=== PATIENT | male | born 1955 | race Caucasian/White ===

== ENCOUNTER 2017-06-13 08:40 | Inpatient (IN) | payer BC ==
[~2017-06-13 08:40] MED LIST: Acetaminophen 325 MG Tab PO SCH; Lidocaine 1%/Sod Bicarbonate in NS 8.4% 1 ML Syringe IDERM PRN; Pregabalin 25 MG Cap PO SCH; Sodium Chloride 0.9% 10 ML Syringe FLUSH PRN; oxyCODONE ER 10 MG TAB.ER PO SCH
[2017-06-13] MEDS: Lactated Ringers 1,000 ML IV SCH ×3 (09:35→18:13)
[2017-06-13] MEDS ORDERED: ceFAZolin 1 GM Vial ONE ×3 (09:37→15:15)
[2017-06-13] MEDS ORDERED: Vancomycin 1 GM SDV ONE (09:37)
[2017-06-13] MEDS ORDERED: Bupivacaine 0.25% 30 ML SDV ONE (09:37)
[2017-06-13] MEDS ORDERED: Triamcinolone Acetonide 40 MG/ML 1 ML MDV ONE ×2 (09:37→11:06)
--- NOTE | 2017-06-13 09:58 | PCM.PREANE ---
Preanesthetic Assessment - Anesthesia/Transfusion/Family Hx Anesthesia History: Prior Anesthesia Without Reaction Type of Anesthesia Reaction: Excessive Nausea/Vomiting Family History of Anesthesia Reaction: No Transfusion History: No Prior Transfusion(s) - Review of Systems General: No Symptoms Pulmonary: No Symptoms Cardiovascular: No Symptoms Gastrointestinal: No Symptoms Neurological: No Symptoms Other: Reports: Liver Problems (large mass removed 2015), Thyroid Problems, Depression, Anxiety - Physical Assessment NPO Status Date: 06/12/17 NPO Status Time: 22:00 (sip with pill) Pulse: 80 O2 Sat by Pulse Oximetry: 98 Respiratory Rate: 16 Blood Pressure: 159/95 Temperature: 100.4 F Height: 6 ft Weight: 108 kg ASA Class: 3 Mental Status: Alert & Oriented x3 Airway Class: Mallampati = 1 Dentition: Reports: Normal Dentition Thyro-Mental Finger Breadths: 3 Mouth Opening Finger Breadths: 3 ROM/Head Extension: Full Lungs: Clear to Auscultation, Normal Respiratory Effort Cardiovascular: Regular Rate, Regular Rhythm - Lab Values: Laboratory Last Values MRSA (PCR) Negative 05/31/17 09:38 - Allergies Allergies/Adverse Reactions: Allergies Allergy/AdvReac Type Severity Reaction Status Date / Time iodine Allergy Rash Verified 06/12/17 15:18 - Blood Blood Available: No - Acknowledgements Anesthesia Type Planned: General Anesthesia (per [place]) Pt an Appropriate Candidate for the Planned Anesthesia: Yes Alternatives and Risks of Anesthesia Discussed w Pt/Guardian: Yes Pt/Guardian Understands and Agrees with Anesthesia Plan: Yes PreAnesthesia Questionnaire HEENT History: Reports: None Cardiovascular History: Reports: High Cholesterol, Hypertension Other Cardiovascular History: 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 Respiratory History: Reports: Other (See Below) Other Respiratory History: undiagnosed sleep apnea Gastrointestinal History: Reports: GERD, Irritable Bowel Syndrome, Other (See Below) Other Gastrointestinal History: right inguinal hernia, hepatic hemangioma Genitourinary History: Reports: Other (See Below) Other Genitourinary History: renal calculus, hypogonadism, erectile dysfunction , elevated PSA 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 Musculoskeletal History: Reports: Other (See Below) Other Musculoskeletal History: carpal tunnel syndrome, wrist pain, low back pain , left shoulder impingement, left knee injury, poylmyaglia, rheumatica, arthralgia, arm weakness Psychiatric History: Reports: Depression, Other (See Below) Other Psychiatric History: chronic insomnia, fatigue Endocrine/Metabolic History: Reports: Hypothyroidism Hematologic History: Reports: None Oncologic (Cancer) History: Reports: None Dermatologic History: Reports: None - Past Surgical History HEENT Surgical History: Reports: None Respiratory Surgical History: Reports: None GI Surgical History: Reports: Cholecystectomy, Colonoscopy, EGD, Hernia, Inguinal, Other (See Below) Other GI Surgeries/Procedures: partial liver lobectomy Female Surgical History: Reports: None Male Surgical History: Reports: None Endocrine Surgical History: Reports: None Neurological Surgical History: Reports: Discectomy, Other (See Below) Other Neurological Surgeries/Procedures: back discectomy x6 Musculoskeletal Surgical History: Reports: Carpal Tunnel, Knee Replacement, Shoulder Surgery Other Musculoskeletal Surgeries/Procedures:: back surgery Oncologic Surgical History: Reports: None Dermatological Surgical History: Reports: None - SUBSTANCE USE Smoking Status *Q: Never Smoker Tobacco Use Within Last Twelve Months: No Second Hand Smoke Exposure: No Days Per Week of Alcohol Use: 1 (occasionally) Number of Drinks Per Day: 3 Total Drinks Per Week: 3 Recreational Drug Use History: No - HOME MEDS Home Medications: Home Meds Levothyroxine Sodium [Synthroid] 200 mcg PO DAILY 07/29/14 [History] Lisinopril 20 mg PO DAILY 07/29/14 [History] Temazepam 30 mg PO BEDTIME 07/29/14 [History] DULoxetine [Cymbalta] 60 mg PO DAILY 06/12/17 [History] Hydroxychloroquine Sulfate [Plaquenil] 200 mg PO BID 06/12/17 [History] Lactobacillus Acidophilus [Probiotic] 1 cap PO DAILY 06/12/17 [History] Naproxen Sodium [Aleve] 220 mg PO BID 06/12/17 [History] Sildenafil Citrate [Sildenafil] 20 mg PO ASDIRECTED PRN 06/12/17 [History] amLODIPine [Norvasc] 2.5 mg PO DAILY 06/12/17 [History] hydrOXYzine HCl [hydrOXYzine] 25 - 50 mg PO BEDTIME PRN 06/12/17 [History] traMADol [Ultram] 50 mg PO Q4H PRN 06/13/17 [History] - CURRENT (IN HOUSE) MEDS Current Meds: Current Medications Acetaminophen (Tylenol) 975 mg PO ASDIRECTED BRAD Stop: 06/13/17 12:00 Aspirin (Ecotrin) 325 mg PO BID BRAD Bisacodyl (Dulcolax) 5 mg PO DAILY PRN PRN Reason: Constipation Morphine Sulfate 8 mg/Epinephrine HCl 0.3 mg/Cefuroxime Sodium 750 mg/Ketorolac Tromethamine 30 mg/Sodium Chloride 27.9 ml 0 mg .XX ONETIME ONE Stop: 06/13/17 11:21 Cyclobenzaprine HCl (Flexeril) 10 mg PO TID PRN PRN Reason: Spasms Docusate Sodium (Colace) 100 mg PO BID [facility] Famotidine (Pepcid) 20 mg PO Q12H [facility] Lactated Ringer's (Ringers, Lactated) 1,000 mls @ 125 mls/hr IV ASDIRECTED [facility] Stop: 06/13/17 23:00 Cefazolin Sodium/Dextrose 2 gm (/ Premix) 50 mls @ 100 mls/hr IV Q8H [facility] Stop: 06/13/17 23:29 Ketorolac Tromethamine (Toradol) 15 mg IVPUSH Q6H PRN PRN Reason: Pain Lidocaine/Sodium Bicarbonate (Buffered Lidocaine 1% In Ns 8.4%) 0.25 ml IDERM ONETIME PRN PRN Reason: Prior to IV Start Stop: 06/13/17 18:00 Magnesium Hydroxide (Milk Of Magnesia) 30 ml PO BID PRN PRN Reason: Constipation Morphine Sulfate (Morphine) 2 mg IVPUSH Q2H PRN PRN Reason: Breakthrough Pain Naloxone HCl (Narcan) 0.1 mg IVPUSH Q5M PRN PRN Reason: Oversedation Ondansetron HCl (Zofran) 4 mg IVPUSH Q6H PRN PRN Reason: Nausea/Vomiting Oxycodone HCl (Oxycontin) 10 mg PO ASDIRECTED [facility] Stop: 06/13/17 12:00 Oxycodone/Acetaminophen (Percocet 325-5 Mg) 1 - 2 tab PO Q4H PRN PRN Reason: Pain Pregabalin (Lyrica) 50 mg PO ASDIRECTED [facility] Stop: 06/13/17 12:00 Senna (Senna) 8.6 mg PO BID PRN PRN Reason: Constipation Sodium Chloride (Saline Flush) 10 ml FLUSH ASDIRECTED PRN PRN Reason: Keep Vein Open Stop: 06/13/17 18:00 Discontinued Medications Bupivacaine HCl (Marcaine 0.25%) Confirm Administered Dose 30 ml .ROUTE .STK- MED ONE Stop: 06/13/17 09:38 Cefazolin Sodium (Ancef) Confirm Administered Dose 2 gm .ROUTE .STK-MED ONE Stop: 06/13/17 09:38 Tranexamic Acid (Cyklokapron) Confirm Administered Dose 1,000 mg .ROUTE .STK- MED ONE Stop: 06/13/17 09:38 Triamcinolone Acetonide (Kenalog-40) Confirm Administered Dose 40 mg .ROUTE .STK -MED ONE Stop: 06/13/17 09:38 Vancomycin HCl (Vancomycin) Confirm Administered Dose 1 gm .ROUTE .STK-MED ONE Stop: 06/13/17 09:38
[2017-06-13] MEDS ORDERED: Midazolam 1 MG/ML 2 ML SDV ONE (10:21)
[2017-06-13] MEDS ORDERED: Propofol 200 MG/20 ML SDV ONE ×3 (10:21→13:44)
[2017-06-13] MEDS ORDERED: fentaNYL 100 MCG/2 ML SDV ONE ×2 (10:21→15:19)
[2017-06-13] MEDS ORDERED: Lactated Ringers 1,000 ML ONE ×2 (10:27)
[2017-06-13] MEDS ORDERED: fentaNYL 250 MCG/5 ML SDV ONE (10:40)
[2017-06-13] MEDS ORDERED: Lidocaine 1% 4 ML ONE (10:40)
[2017-06-13] MEDS ORDERED: Scopolamine 1.5 MG Transdermal Patch TOP ONE (10:42)
[2017-06-13] MEDS ORDERED: Rocuronium 50 MG/5 ML Vial ONE (10:44)
[2017-06-13] MEDS ORDERED: HYDROmorphone 0.5 MG/0.5 ML Syringe IVPUSH PRN ×2 (11:32→14:53)
[2017-06-13] MEDS ORDERED: fentaNYL 100 MCG/2 ML SDV IVPUSH PRN ×2 (11:32→14:53)
[2017-06-13] MEDS ORDERED: Meperidine PF 50 MG/ML Syringe IVPUSH PRN ×2 (11:32→14:53)
[2017-06-13] MEDS ORDERED: Ondansetron 4 MG/2 ML SDV IVPUSH PRN ×2 (11:32→13:00)
[2017-06-13] MEDS ORDERED: methylPREDNISolone Sodium Succinate 125 MG/2 ML SDV ONE (11:38)
[2017-06-13] MEDS ORDERED: ePHEDrine/Normal Saline 25 MG/5 ML Syringe ONE (11:40)
[2017-06-13] MEDS ORDERED: Ondansetron 4 MG/2 ML SDV ONE (11:46)
[2017-06-13] MEDS ORDERED: Bupivacaine 0.25% 10 ML SDV ONE (11:48)
[2017-06-13] MEDS ORDERED: HYDROmorphone 0.5 MG/0.5 ML Syringe ONE ×5 (12:04→15:28)
[2017-06-13] MEDS ORDERED: Ketamine 500 mg/10 ML MDV ONE (12:05)
[2017-06-13] MEDS ORDERED: Glycopyrrolate 0.2 MG/ML SDV ONE (12:22)
[2017-06-13] MEDS ORDERED: Phenylephrine 1% 10 MG/ML SDV ONE (12:29)
[2017-06-13] MEDS ORDERED: Naloxone 0.4 MG/ML SDV IVPUSH PRN (13:00)
[2017-06-13] MEDS ORDERED: Sennosides 8.6 MG Tab PO PRN (13:00)
[2017-06-13] MEDS ORDERED: Magnesium Hydroxide 400 MG/5 ML Susp 30 ML Cup PO PRN (13:00)
[2017-06-13] MEDS ORDERED: Bisacodyl 5 MG Tab PO PRN (13:00)
[2017-06-13] MEDS ORDERED: Cyclobenzaprine 10 MG Tab PO PRN (13:00)
[2017-06-13] MEDS ORDERED: EPINEPHrine 1 MG/ML SDV ONE (13:03)
[2017-06-13] MEDS ORDERED: Ropivacaine 0.5% 5 MG/ML 30 ML SDV ONE (13:03)
[2017-06-13] MEDS ORDERED: Ketorolac 30 MG/ML SDV ONE (13:07)
[2017-06-13] MEDS: Morphine 8 MG, EPINEPHrine 0.3 MG, Cefuroxime 750 MG, Ketorolac 30 MG, Sodium Chloride ... ONE ×5 (14:38)
[2017-06-13] MEDS ORDERED: diphenhydrAMINE 50 MG/ML SDV IVPUSH PRN (14:53)
[2017-06-13] MEDS ORDERED: Haloperidol Lactate 5 MG/ML SDV IVPUSH ONE (14:53)
[2017-06-13] MEDS ORDERED: Lidocaine 1% 2 ML ONE (15:09)
--- NOTE | 2017-06-13 15:17 | PCM.PN ---
- General Info Date of Service: 06/13/17 Subjective Update: Deshawn is a 62 [address] of Dr[address] 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 Hospital medicine was consulted for post -operative medical care. At this time he is stable. Pain is controlled. He denies any chest pain, shortness of breath, palpitations, nausea, or vomiting. He carries a history of: HTN, HLD, GERD, IBS, Depression, Anxiety, Hypogonadism , Insomnia, Hypothyroid, Elevated PSA. He has never smoked. He is a full code. His primary care provider is Willy Thacker. Functional Status: Reports: Pain Controlled, Urinating, Incentive Spirometry - Review of Systems General: Reports: No Symptoms HEENT: Reports: No Symptoms Pulmonary: Reports: No Symptoms Cardiovascular: Reports: No Symptoms Gastrointestinal: Reports: No Symptoms Genitourinary: Reports: No Symptoms Musculoskeletal: Reports: Leg Pain, Joint Pain (bilateral, s/p L TKA and R cortisone injection) Skin: Reports: No Symptoms Neurological: Reports: No Symptoms Psychiatric: Reports: No Symptoms - Patient Data Vitals - Most Recent: Last Vital Signs Temp 100.4 F 06/13/17 10:43 Pulse 80 06/13/17 10:43 Resp 16 06/13/17 10:43 BP 159/95 H 06/13/17 10:43 Pulse Ox 98 06/13/17 10:43 Weight - Most Recent: 238 lb 1.588 oz Johan Results Last 24 Hours: Microbiology 06/13/17 12:46 Gram Stain - Final Other 06/13/17 12:44 Gram Stain - Final Other 06/13/17 12:02 Gram Stain - Final Knee, Left 06/13/17 12:03 Gram Stain - Final Knee, Left 06/13/17 12:02 Gram Stain - Final Knee, Left Med Orders - Current: Current Medications Aspirin (Ecotrin) 325 mg PO BID BRAD Bisacodyl (Dulcolax) 5 mg PO DAILY PRN PRN Reason: Constipation Cyclobenzaprine HCl (Flexeril) 10 mg PO TID PRN PRN Reason: Spasms Diphenhydramine HCl (Benadryl) 25 mg IVPUSH Q6H PRN PRN Reason: Pruritis Stop: 06/13/17 18:00 Docusate Sodium (Colace) 100 mg PO BID BRAD Famotidine (Pepcid) 20 mg PO Q12H [facility] Fentanyl (Sublimaze) 50 mcg IVPUSH Q5M PRN PRN Reason: Pain Stop: 06/14/17 18:00 Hydromorphone HCl (Dilaudid) 0.5 mg IVPUSH ASDIRECTED PRN PRN Reason: Severe Pain Stop: 06/13/17 16:00 Lactated Ringer's (Ringers, Lactated) 1,000 mls @ 125 mls/hr IV ASDIRECTED [facility] Stop: 06/13/17 23:00 Last Admin: 06/13/17 09:35 Dose: 125 mls/hr Cefazolin Sodium/Dextrose 2 gm (/ Premix) 50 mls @ 100 mls/hr IV Q8H [facility] Stop: 06/14/17 10:59 Ketorolac Tromethamine (Toradol) 15 mg IVPUSH Q6H PRN PRN Reason: Pain Lidocaine/Sodium Bicarbonate (Buffered Lidocaine 1% In Ns 8.4%) 0.25 ml IDERM ONETIME PRN PRN Reason: Prior to IV Start Stop: 06/13/17 18:00 Magnesium Hydroxide (Milk Of Magnesia) 30 ml PO BID PRN PRN Reason: Constipation Morphine Sulfate (Morphine) 2 mg IVPUSH Q2H PRN PRN Reason: Breakthrough Pain Naloxone HCl (Narcan) 0.1 mg IVPUSH Q5M PRN PRN Reason: Oversedation Ondansetron HCl (Zofran) 4 mg IVPUSH Q6H PRN PRN Reason: Nausea/Vomiting Ondansetron HCl (Zofran) 4 mg IVPUSH ONETIME PRN PRN Reason: Nausea/Vomiting Stop: 06/13/17 18:00 Oxycodone/Acetaminophen (Percocet 325-5 Mg) 1 - 2 tab PO Q4H PRN PRN Reason: Pain Senna (Senna) 8.6 mg PO BID PRN PRN Reason: Constipation Sodium Chloride (Saline Flush) 10 ml FLUSH ASDIRECTED PRN PRN Reason: Keep Vein Open Stop: 06/13/17 18:00 Discontinued Medications Acetaminophen (Tylenol) 975 mg PO ASDIRECTED [facility] Stop: 06/13/17 12:00 Last Admin: 06/13/17 10:14 Dose: 975 mg Bupivacaine HCl (Marcaine 0.25%) Confirm Administered Dose 30 ml .ROUTE .STK- MED ONE Stop: 06/13/17 09:38 Last Admin: 06/13/17 14:39 Dose: 30 ml Bupivacaine HCl (Sensorcaine-Mpf 0.25%) Confirm Administered Dose 10 ml .ROUTE .STK-MED ONE Stop: 06/13/17 11:49 Cefazolin Sodium (Ancef) Confirm Administered Dose 2 gm .ROUTE .STK-MED ONE Stop: 06/13/17 09:38 Last Admin: 06/13/17 14:35 Dose: 2 gm Cefazolin Sodium (Ancef) Confirm Administered Dose 2 gm .ROUTE .STK-MED ONE Stop: 06/13/17 10:27 Morphine Sulfate 8 mg/Epinephrine HCl 0.3 mg/Cefuroxime Sodium 750 mg/Ketorolac Tromethamine 30 mg/Sodium Chloride 27.9 ml 0 mg .XX ONETIME ONE Stop: 06/13/17 11:21 Last Admin: 06/13/17 14:38 Dose: 788.3 mg Ephedrine Sulfate (Ephedrine In Ns) Confirm Administered Dose 25 mg .ROUTE .STK- MED ONE Stop: 06/13/17 11:41 Epinephrine HCl (Adrenalin) Confirm Administered Dose 1 mg .ROUTE .STK-MED ONE Stop: 06/13/17 13:04 Fentanyl (Sublimaze) Confirm Administered Dose 100 mcg .ROUTE .STK-MED ONE Stop: 06/13/17 10:22 Fentanyl (Sublimaze) Confirm Administered Dose 250 mcg .ROUTE .STK-MED ONE Stop: 06/13/17 10:41 Fentanyl (Sublimaze) 50 mcg IVPUSH Q5M PRN PRN Reason: Pain Stop: 06/13/17 14:00 Glycopyrrolate (Robinul) Confirm Administered Dose 0.2 mg .ROUTE .STK-MED ONE Stop: 06/13/17 12:23 Haloperidol Lactate (Haldol) 1 mg IVPUSH ONETIME ONE Stop: 06/13/17 14:54 Hydromorphone HCl (Dilaudid) 0.5 mg IVPUSH ONETIME PRN PRN Reason: Pain (severe 7-10) Stop: 06/13/17 13:00 Hydromorphone HCl (Dilaudid) Confirm Administered Dose 0.5 mg .ROUTE .ST-MED ONE Stop: 06/13/17 12:05 Hydromorphone HCl (Dilaudid) Confirm Administered Dose 0.5 mg .ROUTE .ST-MED ONE Stop: 06/13/17 12:53 Hydromorphone HCl (Dilaudid) Confirm Administered Dose 0.5 mg .ROUTE .ST-MED ONE Stop: 06/13/17 14:50 Hydromorphone HCl (Dilaudid) Confirm Administered Dose 0.[address] ONE Stop: 06/13/17 14:57 Lactated Ringer's (Ringers, Lactated) Confirm Administered Dose 1,000 mls @ [facility] Stop: 06/13/17 10:28 Lactated Ringer's (Ringers, Lactated) Confirm Administered Dose 1,000 mls @ as directed .ROUTE .[facility] ONE Stop: 06/13/17 10:28 Lidocaine HCl (Xylocaine-Mpf 1%) Confirm Administered Dose 4 mls @ as directed .ROUTE .[facility]-MED ONE Stop: 06/13/17 10:41 Ketamine HCl (Ketalar) Confirm Administered Dose 500 mg .ROUTE .ST-MED ONE Stop: 06/13/17 12:06 Ketorolac Tromethamine (Toradol) Confirm Administered Dose [address] ONE Stop: 06/13/17 13:08 Meperidine HCl (Demerol) 12.5 mg IVPUSH ONETIME PRN PRN Reason: shivering Stop: 06/13/17 14:00 Meperidine HCl (Demerol) 12.5 mg IVPUSH ONETIME PRN PRN Reason: Shivering Stop: 06/13/17 14:54 Methylprednisolone Sodium Succinate (Solu-Medrol) Confirm Administered Dose [address]-MED ONE Stop: 06/13/17 11:39 Midazolam HCl (Versed 1 Mg/Ml) Confirm Administered Dose 2 mg .ROUTE .ST-MED ONE Stop: 06/13/17 10:22 Ondansetron HCl (Zofran) Confirm Administered Dose 4 mg .ROUTE .ST-MED ONE Stop: 06/13/17 11:47 Oxycodone HCl (Oxycontin) 10 mg PO ASDIRECTED [facility] Stop: 06/13/17 12:00 Last Admin: 06/13/17 10:15 Dose: 10 mg Phenylephrine HCl ([place]-Synephrine) Confirm Administered Dose 10 mg .ROUTE .STK- MED ONE Stop: 06/13/17 12:30 Pregabalin (Lyrica) 50 mg PO ASDIRECTED [facility] Stop: 06/13/17 12:00 Last Admin: 06/13/17 10:14 Dose: 50 mg Propofol (Diprivan 20 Ml) Confirm Administered Dose 200 mg .ROUTE .STK-MED ONE Stop: 06/13/17 10:22 Propofol (Diprivan 20 Ml) Confirm Administered Dose 200 mg .ROUTE .STK-MED ONE Stop: 06/13/17 13:45 Propofol (Diprivan 20 Ml) Confirm Administered Dose 200 mg .ROUTE .STK-MED ONE Stop: 06/13/17 13:45 Rocuronium [place] (Zemuron) Confirm Administered Dose 50 mg .ROUTE .STK-MED ONE Stop: 06/13/17 10:45 Ropivacaine (Naropin 0.5%) Confirm Administered Dose 30 ml .ROUTE .STK-MED ONE Stop: 06/13/17 13:04 Scopolamine (Transderm-Scop) 1.5 mg TOP ONETIME ONE Stop: 06/13/17 10:43 Last Admin: 06/13/17 11:11 Dose: 1.5 mg Tranexamic Acid (Cyklokapron) Confirm Administered Dose 1,000 mg .ROUTE .STK- MED ONE Stop: 06/13/17 09:38 Triamcinolone Acetonide (Kenalog-40) Confirm Administered Dose 40 mg .ROUTE .STK -MED ONE Stop: 06/13/17 09:38 Triamcinolone Acetonide (Kenalog-40) Confirm Administered Dose 40 mg .ROUTE .STK -MED ONE Stop: 06/13/17 11:07 Vancomycin HCl (Vancomycin) Confirm Administered Dose 1 gm .ROUTE .STK-MED ONE Stop: 06/13/17 09:38 - Exam Quality Assessment: Supplemental Oxygen, Urine Catheter, DVT Prophylaxis General: Alert, Oriented HEENT: Pupils Equal, Pupils Reactive, EOMI, Mucous Membr. Moist/[place] Neck: Supple Lungs: Clear to Auscultation, Normal Respiratory Effort Cardiovascular: Regular Rate, Regular Rhythm GI/Abdominal Exam: Normal Bowel Sounds, Soft, Non-Tender, No Organomegaly, No Distention, No Abnormal Bruit, No Mass, Pelvis Stable (Male) Exam: Deferred Back Exam: Normal Inspection, Full Range of Motion Extremities: Normal Capillary Refill, Pedal Edema, Leg Pain, Limited Range of Motion (bilateral, s/p L TKA and R cortisone injection) Peripheral Pulses: 1+: Posterior Tibial (L), Posterior Tibial (R), Dorsalis Pedis (L), Dorsalis Pedis (R) Skin: Warm, Dry, Intact Wound/Incisions: Healing Well, Dressing Dry and Intact Neurological: No New Focal Deficit Psy/Mental Status: Alert, Normal Affect, Normal Mood - Problem List & Annotations (1) Status post revision of total replacement of left knee SNOMED Code(s): 590773859, 3816696164384 Code(s): Z96.652 - PRESENCE OF LEFT ARTIFICIAL KNEE JOINT Status: Acute Current Visit: Yes (2) Right knee pain SNOMED Code(s): 94290006 Code(s): M25.561 - PAIN IN RIGHT KNEE Status: Acute Current Visit: Yes (3) Left leg pain SNOMED Code(s): 150340866 Code(s): M79.605 - PAIN IN LEFT LEG Status: Acute Current Visit: No (4) HTN (hypertension) SNOMED Code(s): 60847089 Code(s): I10 - ESSENTIAL (PRIMARY) HYPERTENSION Status: Chronic Priority : Medium Current Visit: Yes Qualifiers: Hypertension type: unspecified Qualified Code(s): I10 - Essential (primary ) hypertension (5) HLD (hyperlipidemia) SNOMED Code(s): 30233307 Code(s): E78.5 - HYPERLIPIDEMIA, UNSPECIFIED Status: Chronic Priority: Low Current Visit: No Qualifiers: Hyperlipidemia type: unspecified Qualified Code(s): E78.5 - Hyperlipidemia , unspecified (6) Hypogonadism SNOMED Code(s): 17268130 Code(s): FLR1495 - Status: Chronic Priority: Low Current Visit: No (7) GERD (gastroesophageal reflux disease) SNOMED Code(s): 240501398 Code(s): K21.9 - GASTRO-ESOPHAGEAL REFLUX DISEASE WITHOUT ESOPHAGITIS Status: Chronic Priority: Medium Current Visit: No Qualifiers: Esophagitis presence: esophagitis presence not specified Qualified Code(s) : K21.9 - Gastro-esophageal reflux disease without esophagitis (8) Irritable bowel syndrome SNOMED Code(s): 95919153 Code(s): K58.9 - IRRITABLE BOWEL SYNDROME WITHOUT DIARRHEA Status: Chronic Priority: Low Current Visit: No Qualifiers: Irritable bowel syndrome type: unspecified Qualified Code(s): K58.9 - Irritable bowel syndrome without diarrhea (9) Anxiety SNOMED Code(s): 06266113 Code(s): F41.9 - ANXIETY DISORDER, UNSPECIFIED Status: Chronic Priority: Low Current Visit: No (10) Insomnia SNOMED Code(s): 080455268 Code(s): G47.00 - INSOMNIA, UNSPECIFIED Status: Chronic Priority: Low Current Visit: No Qualifiers: Insomnia type: unspecified Qualified Code(s): G47.00 - Insomnia, unspecified (11) Hypothyroid SNOMED Code(s): 27322256 Code(s): E03.9 - HYPOTHYROIDISM, UNSPECIFIED Status: Chronic Priority: Medium Current Visit: No Qualifiers: Hypothyroidism type: unspecified Qualified Code(s): E03.9 - Hypothyroidism , unspecified (12) Elevated PSA SNOMED Code(s): 422006378 Code(s): R97.20 - ELEVATED PROSTATE SPECIFIC ANTIGEN [PSA] Status: Chronic Priority: Low Current Visit: No (13) History of total left knee replacement SNOMED Code(s): 1203424857275, 658671962, 0093219784932 Code(s): Z96.652 - PRESENCE OF LEFT ARTIFICIAL KNEE JOINT Status: Chronic Priority: Medium Current Visit: No (14) Carpal tunnel syndrome SNOMED Code(s): 46679079 Code(s): G56.00 - CARPAL TUNNEL SYNDROME, UNSPECIFIED UPPER LIMB Status: Chronic Priority: Low Current Visit: No Qualifiers: Laterality: unspecified laterality Qualified Code(s): G56.00 - Carpal tunnel syndrome, unspecified upper limb (15) H/O discectomy SNOMED Code(s): 233534225, 951869130 Code(s): Z98.890 - OTHER SPECIFIED POSTPROCEDURAL STATES Status: Chronic Priority: Low Current Visit: No (16) Inguinal hernia, right SNOMED Code(s): 579093041 Code(s): K40.90 - UNIL INGUINAL HERNIA, W/O OBST OR GANGR, NOT SPCF RECUR Status: Resolved Priority: Medium Current Visit: No (17) Other specified depressive episodes SNOMED Code(s): 43885887 Code(s): F32.89 - OTHER SPECIFIED DEPRESSIVE EPISODES Status: Chronic Priority: Low Current Visit: No - Problem List Review Problem List Initiated/Reviewed/Updated: Yes - Plan Plan:: I/P: Acute: S/P left total knee arthroplasty - post-operative day 0 -DVT prophylaxis and pain management per primary care team -PT/OT -IS/RT -Monitor oxygen saturation -Titrate oxygen as needed -Vital signs stable -Monitor labs -Pre-operative Hgb was [number] Right knee pain, s/p cortisone injection -Pain management per primary care team Chronic: HTN HLD GERD IBS Depression Anxiety Hypogonadism Insomnia Hypothyroid Elevated PSA Plan: CM for discharge planning GI prophylaxis: Pepcid DVT/PE prophylaxis: BRIAN miller, SCD, ASA Home medications as indicated Other orders as listed above Routine AM labs He is a full code. His PCP is Willy Thacker. Thank you for allowing us to participate in the care of this patient!!
--- NOTE | 2017-06-13 15:41 | PCM.CONS ---
H&P History of Present Illness - General Date of Service: 06/13/17 Admit Problem/Dx: Admission Diagnosis/Problem Admission Diagnosis/Problem Pain in limb Source of Information: Patient, Old Records, Provider, RN Notes Reviewed History Limitations: Reports: No Limitations - History of Present Illness Initial Comments - Free Text/Narative: Deshawn is a 62 yo male patient of Dr. 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 Hospital medicine was consulted for post -operative medical care. At this time he is stable. Pain is controlled. He denies any chest pain, shortness of breath, palpitations, nausea, or vomiting. He carries a history of: HTN, HLD, GERD, IBS, Depression, Anxiety, Hypogonadism , Insomnia, Hypothyroid, Elevated PSA. He has never smoked. He is a full code. His primary care provider is Willy Thacker. Left Knee Pain Score (Numeric/FACES): 9 - Related Data Allergies/Adverse Reactions: Allergies Allergy/AdvReac Type Severity Reaction Status Date / Time iodine Allergy Rash Verified 06/13/17 21:26 Home Medications: Home Meds Levothyroxine Sodium [Synthroid] 200 mcg PO DAILY 07/29/14 [History] Lisinopril 20 mg PO DAILY 07/29/14 [History] Temazepam 30 mg PO BEDTIME 07/29/14 [History] DULoxetine [Cymbalta] 60 mg PO DAILY 06/12/17 [History] Hydroxychloroquine Sulfate [Plaquenil] 200 mg PO BID 06/12/17 [History] Sildenafil Citrate [Sildenafil] 20 mg PO ASDIRECTED PRN 06/12/17 [History] amLODIPine [Norvasc] 2.5 mg PO BEDTIME 06/12/17 [History] hydrOXYzine HCl [hydrOXYzine] 25 - 50 mg PO BEDTIME PRN 06/12/17 [History] traMADol [Ultram] 50 mg PO Q4H PRN 06/13/17 [History] Acetaminophen/oxyCODONE [Percocet 325-5 MG] 1 - 2 tab PO Q6H PRN #60 tablet [Rx] Aspirin [Ecotrin] 325 mg PO BID #84 tab.ec 06/14/17 [Rx] Bisacodyl [Dulcolax] 5 mg PO DAILY PRN tablet 06/14/17 [Rx] Cyclobenzaprine [Flexeril] 10 mg PO TID PRN #40 tablet 06/14/17 [Rx] Docusate Sodium [Colace] 100 mg PO BID cap 06/14/17 [Rx] Famotidine [Pepcid] 20 mg PO Q12H tablet 06/14/17 [Rx] Lactobacillus Acidophilus [Probiotic] 1 cap PO DAILY 06/14/17 [Rx] Magnesium Hydroxide [Milk of Magnesia] 30 ml PO BID PRN cup 06/14/17 [Rx] Sennosides [Senna] 8.6 mg PO BID PRN tablet 06/14/17 [Rx] Past Medical History HEENT History: Reports: None Cardiovascular History: Reports: High Cholesterol, Hypertension Other Cardiovascular History: 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 Respiratory History: Reports: Other (See Below) Other Respiratory History: undiagnosed sleep apnea Gastrointestinal History: Reports: GERD, Irritable Bowel Syndrome, Other (See Below) Other Gastrointestinal History: right inguinal hernia, hepatic hemangioma Genitourinary History: Reports: Other (See Below) Other Genitourinary History: renal calculus, hypogonadism, erectile dysfunction , elevated PSA [employer]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 Musculoskeletal History: Reports: Other (See Below) Other Musculoskeletal History: carpal tunnel syndrome, wrist pain, low back pain , left shoulder impingement, left knee injury, poylmyaglia, rheumatica, arthralgia, arm weakness Psychiatric History: Reports: Depression, Other (See Below) Other Psychiatric History: chronic insomnia, fatigue Endocrine/Metabolic History: Reports: Hypothyroidism Hematologic History: Reports: None Oncologic (Cancer) History: Reports: None Dermatologic History: Reports: None - Past Surgical History HEENT Surgical History: Reports: None Respiratory Surgical History: Reports: None GI Surgical History: Reports: Cholecystectomy, Colonoscopy, EGD, Hernia, Inguinal, Other (See Below) Other GI Surgeries/Procedures: partial liver lobectomy Female Surgical History: Reports: None Male Surgical History: Reports: None Endocrine Surgical History: Reports: None Neurological Surgical History: Reports: Discectomy, Other (See Below) Other Neurological Surgeries/Procedures: back discectomy x6 Musculoskeletal Surgical History: Reports: Carpal Tunnel, Knee Replacement, Shoulder Surgery Other Musculoskeletal Surgeries/Procedures:: back surgery Oncologic Surgical History: Reports: None Dermatological Surgical History: Reports: None Social & Family History - Tobacco Use Smoking Status *Q: Never Smoker Second Hand Smoke Exposure: No - Caffeine Use Caffeine Use: Reports: Soda - Alcohol Use Days Per Week of Alcohol Use: 1 (occasionally) Number of Drinks Per Day: 3 Total Drinks Per Week: 3 - Recreational Drug Use Recreational Drug Use: No H&P Review of Systems - Review of Systems: Review Of Systems: See Below General: Reports: No Symptoms HEENT: Reports: No Symptoms Pulmonary: Reports: No Symptoms Cardiovascular: Reports: No Symptoms Gastrointestinal: Reports: No Symptoms Genitourinary: Reports: No Symptoms Musculoskeletal: Reports: Joint Pain (bilateral, s/p L TKA and R knee cortisone injection) Skin: Reports: No Symptoms Psychiatric: Reports: No Symptoms Neurological: Reports: No Symptoms Hematologic/Lymphatic: Reports: No Symptoms Immunologic: Reports: No Symptoms Exam - Exam Exam: See Below - Vital Signs Vital Signs: Last Vital Signs Temp 100.4 F 06/13/17 10:43 Pulse 80 06/13/17 10:43 Resp 16 06/13/17 10:43 BP 159/95 H 06/13/17 10:43 Pulse Ox 98 06/13/17 10:43 Weight: 238 lb 1.588 oz - Exam Quality Assessment: Supplemental Oxygen, Urinary Catheter, DVT Prophylaxis General: Alert, Oriented, Mild Distress HEENT: Conjunctiva Clear, EACs Clear, EOMI, Hearing Intact, Mucosa Moist & [place] , Nares Patent, Normal Nasal Septum, Posterior Pharynx Clear, TMs Clear Neck: Supple, Trachea Midline, 2 Lungs: Clear to Auscultation, Normal Respiratory Effort Cardiovascular: Regular Rate, Regular Rhythm GI/Abdominal Exam: Normal Bowel Sounds, Soft, Non-Tender, No Organomegaly, No Distention, No Abnormal Bruit, No Mass, Pelvis Stable (Male) Exam: Deferred Rectal (Males) Exam: Deferred Back Exam: Normal Inspection, Full Range of Motion, NT Extremities: Normal Capillary Refill, Pedal Edema (bilateral), Limited Range of Motion (s/p L TKA and Right knee cortisone injection) Peripheral Pulses: 1+: Posterior Tibial (L), Posterior Tibial (R), Dorsalis Pedis (L), Dorsalis Pedis (R) Skin: Warm, Dry, Intact, Other (bandanges are dry and intact) Neurological: Cranial Nerves Intact (grossly) Neuro Extensive - Mental Status: Alert, Oriented x3, Normal Mood/Affect, Normal Cognition Psychiatric: Alert, Normal Affect, Normal Mood - Patient Data Result Diagrams: 06/14/17 05:49 06/14/17 05:45 Johan Results Last 24 hrs: Microbiology 06/13/17 12:46 Gram Stain - Final Other 06/13/17 12:44 Gram Stain - Final Other 06/13/17 12:02 Gram Stain - Final Knee, Left 06/13/17 12:03 Gram Stain - Final Knee, Left 06/13/17 12:02 Gram Stain - Final Knee, Left Consult PN Assessment/Plan POD#: 0 Procedures: Procedures ASSAY OF CREATININE (09/03/15) ASSAY OF LIPASE (05/29/15) ASSAY OF PSA TOTAL (01/06/16) C-REACTIVE PROTEIN (03/15/17) CCP ANTIBODY (05/26/16) COMPLETE CBC W/AUTO DIFF WBC (03/15/17) COMPREHEN METABOLIC PANEL (05/29/15) CT ABD & PELVIS W/O CONTRAST (05/29/15) CT ABDOMEN W/DYE (10/03/14) DXA BONE DENSITY AXIAL (04/12/17) EMERGENCY DEPT VISIT (05/29/15) EMERGENCY DEPT VISIT (07/29/14) FIBRIN DEGRADATION QUANT (07/29/14) HYDRATE IV INFUSION ADD-ON (05/29/15) MR-STAPH DNA AMP PROBE (01/13/16) MRI LUMBAR SPINE W/O & W/DYE (12/19/15) PRP I/GÉNESIS INIT REDUC >5 YR (01/21/16) RBC SED RATE AUTOMATED (03/15/17) REMOVAL OF SPERM CORD LESION (01/21/16) ROUTINE VENIPUNCTURE (03/15/17) THER/PROPH/DIAG INJ IV PUSH (05/29/15) TX/PRO/DX INJ NEW DRUG ADDON (05/29/15) URINALYSIS AUTO W/SCOPE (05/29/15) X-RAY EXAM L-S SPINE 2/3 VWS (12/19/15) X-RAY EXAM OF HAND (01/21/15) X-RAY EXAM OF SKULL (12/19/15) (1) Status post revision of total replacement of left knee SNOMED Code(s): 270207951, 4003531444868 Code(s): Z96.652 - PRESENCE OF LEFT ARTIFICIAL KNEE JOINT Priority: High Current Visit: Yes (2) Right knee pain SNOMED Code(s): 21808495 Code(s): M25.561 - PAIN IN RIGHT KNEE Current Visit: Yes (3) Left leg pain SNOMED Code(s): 650425043 Code(s): M79.605 - PAIN IN LEFT LEG Current Visit: No (4) HTN (hypertension) SNOMED Code(s): 77339779 Code(s): I10 - ESSENTIAL (PRIMARY) HYPERTENSION Priority: Medium Current Visit: Yes Qualifiers: Hypertension type: unspecified Qualified Code(s): I10 - Essential (primary ) hypertension (5) HLD (hyperlipidemia) SNOMED Code(s): 56936516 Code(s): E78.5 - HYPERLIPIDEMIA, UNSPECIFIED Priority: Low Current Visit : No Qualifiers: Hyperlipidemia type: unspecified Qualified Code(s): E78.5 - Hyperlipidemia , unspecified (6) Hypogonadism SNOMED Code(s): 04894014 Code(s): JMB0341 - Priority: Low Current Visit: No (7) GERD (gastroesophageal reflux disease) SNOMED Code(s): 444450300 Code(s): K21.9 - GASTRO-ESOPHAGEAL REFLUX DISEASE WITHOUT ESOPHAGITIS Priority: Medium Current Visit: No Qualifiers: Esophagitis presence: esophagitis presence not specified Qualified Code(s) : K21.9 - Gastro-esophageal reflux disease without esophagitis (8) Irritable bowel syndrome SNOMED Code(s): 11222595 Code(s): K58.9 - IRRITABLE BOWEL SYNDROME WITHOUT DIARRHEA Priority: Low Current Visit: No Qualifiers: Irritable bowel syndrome type: unspecified Qualified Code(s): K58.9 - Irritable bowel syndrome without diarrhea (9) Anxiety SNOMED Code(s): 18411537 Code(s): F41.9 - ANXIETY DISORDER, UNSPECIFIED Priority: Low Current Visit: No (10) Insomnia SNOMED Code(s): 626832246 Code(s): G47.00 - INSOMNIA, UNSPECIFIED Priority: Low Current Visit: No Qualifiers: Insomnia type: unspecified Qualified Code(s): G47.00 - Insomnia, unspecified (11) Hypothyroid SNOMED Code(s): 45071834 Code(s): E03.9 - HYPOTHYROIDISM, UNSPECIFIED Priority: Medium Current Visit: No Qualifiers: Hypothyroidism type: unspecified Qualified Code(s): E03.9 - Hypothyroidism , unspecified (12) Elevated PSA SNOMED Code(s): 119396406 Code(s): R97.20 - ELEVATED PROSTATE SPECIFIC ANTIGEN [PSA] Priority: Low Current Visit: No (13) History of total left knee replacement SNOMED Code(s): 6943148369691, 832188180, 2062774005593 Code(s): Z96.652 - PRESENCE OF LEFT ARTIFICIAL KNEE JOINT Priority: Medium Current Visit: No (14) Carpal tunnel syndrome SNOMED Code(s): 54034158 Code(s): G56.00 - CARPAL TUNNEL SYNDROME, UNSPECIFIED UPPER LIMB Priority: Low Current Visit: No Qualifiers: Laterality: unspecified laterality Qualified Code(s): G56.00 - Carpal tunnel syndrome, unspecified upper limb (15) H/O discectomy SNOMED Code(s): 159657743, 773742555 Code(s): Z98.890 - OTHER SPECIFIED POSTPROCEDURAL STATES Priority: Low Current Visit: No (16) Other specified depressive episodes SNOMED Code(s): 40373399 Code(s): F32.89 - OTHER SPECIFIED DEPRESSIVE EPISODES Priority: Low Current Visit: No Problem List Initiated/Reviewed/Updated: Yes Plan: I/P: Acute: S/P left total knee arthroplasty - post-operative day 0 -DVT prophylaxis and pain management per primary care team -PT/OT -IS/RT -Monitor oxygen saturation -Titrate oxygen as needed -Vital signs stable -Monitor labs Right knee pain, s/p cortisone injection -Pain management per primary care team Chronic: HTN HLD GERD IBS Depression Anxiety Hypogonadism Insomnia Hypothyroid Elevated PSA Plan: CM for discharge planning GI prophylaxis: Pepcid DVT/PE prophylaxis: BRIAN miller, SCD, ASA Home medications as indicated Other orders as listed above Routine AM labs He is a full code. His PCP is Willy Thacker. Thank you for allowing us to participate in the care of this patient!!
--- NOTE | 2017-06-13 16:08 | PCM.POSTAN ---
POST ANESTHESIA ASSESSMENT - MENTAL STATUS Mental Status: Alert, Oriented - VITAL SIGNS Pulse Rate: 91 SaO2: 91 Resp Rate: 10 Blood Pressure: 115/70 Temperature: 37.7 C - RESPIRATORY Respiratory Status: Respiratory Rate WNL, Airway Patent, O2 Saturation Stable, Supplemental Oxygen - CARDIOVASCULAR CV Status: Pulse Rate WNL, Blood Pressure Stable - GASTROINTESTINAL GI Status: No Symptoms - PAIN Pain Score: 10 - POST OP HYDRATION Hydration Status: Adequate & Stable
[2017-06-13] MEDS: ceFAZolin 2 GM in Premix Bag 1 BAG IV SCH ×2 (16:15→19:29)
--- NOTE | 2017-06-13 16:28 | CR ---
Left knee: 2 views of the left knee were obtained utilizing portable technique. Knee prosthesis is seen. Components are aligned. Soft tissue air is noted from the surgical procedure. Underlying bony structures appear intact. Impression: 1. Satisfactory postoperative radiographic appearance of recently placed left knee prosthesis. Diagnostic code #2
--- NOTE | 2017-06-13 17:25 | PCM.SN ---
- Free Text/Narrative Note: Left selective femoral nerve block at the adductor canal for post-procedure pain control Time Out: 155 Start: 155 End: 155 Chart reviewed. Consent signed. Questions answered. Appropriate monitors applied. Time out performed. 2mg of versed and 100mcg of fentanyl given for sedation. Left mid-shaft femur evaluated with ultrasound. Scanning medially femur, I was able to identify the femoral artery in the adductor canal. The saphenous nerve was lateral to the artery. The skin was prepped lateral to the ultrasound probe with chlorahexadine. Skin localized with 3mL of 1% lidocaine. The 21ga 4 insulated block needle was inserted under direct ultrasound guidance into the adductor canal. 20mL of 0.5% ropivacaine with 1:200,000 epinephrine was injected cirmcumferentially about the nerve with intermittent negative aspiration every 5mL. Patient tolerated the procedure well. See pictures on progress note and vital signs on nurses notes. Block completed postoperatively. Lara Bledsoe, CONTINUITY READER
[2017-06-13] MEDS ORDERED: Albuterol 0.083% 2.5 MG/3 ML Neb Soln NEB ONE (17:59)
[2017-06-13] MEDS ORDERED: traMADol 50 MG Tab PO PRN (18:24)
[2017-06-13] MEDS ORDERED: Sildenafil 20 MG Tab PO PRN (18:24)
[2017-06-13] MEDS ORDERED: hydrOXYzine HCl 25 MG Tab PO PRN (18:24)
--- NOTE | 2017-06-13 18:33 | CR ---
Left knee: Two fluoroscopic spot views were obtained of the left knee utilizing C-arm device. Study shows a partially visualized knee prosthesis. Fluoroscopy time given as 2.2 seconds. Impression: 1. Procedural study as noted above. Diagnostic code #2
[2017-06-13] MEDS: Acetaminophen/oxyCODONE 325-5 MG Tab PO PRN (19:28)
[2017-06-13] MEDS: Ketorolac 15 MG/ML SDV IVPUSH PRN (19:30)
[2017-06-13] MEDS: Docusate Sodium 100 MG Cap PO SCH (21:31)
[2017-06-13] MEDS: Hydroxychloroquine 200 MG Tab PO SCH (21:31)
[2017-06-13] MEDS: Famotidine 20 MG Tab PO SCH (21:31)
[2017-06-13] MEDS: Temazepam 30 MG Cap PO SCH (22:08)
[2017-06-13] MEDS: Morphine 4 MG/ML Syringe IVPUSH PRN (23:42)
[2017-06-14] MEDS: Acetaminophen/oxyCODONE 325-5 MG Tab PO PRN ×6 (00:54→22:47)
[2017-06-14] MEDS: ceFAZolin 2 GM in Premix Bag 1 BAG IV SCH ×3 (02:51→10:45)
[2017-06-14] MEDS: Morphine 4 MG/ML Syringe IVPUSH PRN (03:02)
--- NOTE | 2017-06-14 07:01 | PCM.CONSN ---
- General Info Date of Service: 06/14/17 Admission Dx/Problem (Free Text): Admission Diagnosis/Problem Admission Diagnosis/Problem Pain in limb Subjective Update: Deshawn Lara is a 62 yo male patient of Dr. Orellana who is post-operative day 1 of left TKA and right knee cortisone injection. Hospital medicine was consulted for post-operative medical care. At this time he is resting in bed comfortably. Pain is controlled. He denies any chest pain, shortness of breath, palpitations , nausea, or vomiting. He carries a history of: HTN, HLD, GERD, IBS, Depression , Anxiety, Hypogonadism, Insomnia, Hypothyroid, Elevated PSA. He has never smoked. Nursing reports post-surgically the patient had some difficulty with oxygenation. Was placed on 10L via mask and brought to ICU. He is a full code. His primary care provider is Willy Thacker. Discussed case with Dr. Orellana. Due to post surgical de-saturation and respiratory difficulty will downgrade to medical floor status and keep to monitor tonight. Pending no acute overnight issues will likely discharge tomorrow AM. Functional Status: Reports: Pain Controlled, Tolerating Diet, Ambulating, Urinating, Incentive Spirometry. Denies: New Symptoms - Review of Systems General: Reports: No Symptoms. Denies: Fever, Weakness, Fatigue, Malaise HEENT: Reports: No Symptoms. Denies: Ear Pain, Headaches, Visual Changes Pulmonary: Reports: No Symptoms. Denies: Shortness of Breath, Cough, Sputum, Wheezing Cardiovascular: Reports: No Symptoms. Denies: Chest Pain, Palpitations, Dyspnea on Exertion Gastrointestinal: Reports: No Symptoms. Denies: Abdominal Pain, Constipation, Diarrhea, Nausea, Vomiting Genitourinary: Reports: No Symptoms Musculoskeletal: Reports: Joint Pain Skin: Reports: No Symptoms Neurological: Reports: No Symptoms Psychiatric: Reports: No Symptoms - Patient Data Vitals - Most Recent: Last Vital Signs Temp 98.1 F 06/14/17 04:00 Pulse 92 06/14/17 04:00 Resp 18 06/14/17 04:00 BP 126/86 06/14/17 04:00 Pulse Ox 94 L 06/14/17 04:00 Weight - Most Recent: 256 lb I&O - Last 24 Hours: Intake & Output 06/13/17 06/14/17 06/14/17 22:59 06:59 14:59 Intake Total 1550 1951 Output Total 574 755 Balance 1125 1196 Lab Results Last 24 Hours: Laboratory Results - last 24 hr 06/14/17 Range/Units 05:49 WBC 12.79 H (4.23-9.07) K/mm3 RBC 3.83 L (4.63-6.08) M/mm3 Hgb 12.2 L (13.7-17.5) gm/L Hct 36.8 L (40.1-51.0) % MCV 96.1 H (79.0-92.2) fl MCH 31.9 (25.7-32.2) pg MCHC 33.2 (32.2-35.5) g/dl RDW Std Deviation 41.8 (35.1-43.9) fL Plt Count 271 (163-337) K/mm3 MPV 9.9 (9.4-12.3) fl Johan Results Last 24 Hours: Microbiology 06/13/17 12:02 Gram Stain - Final Knee, Left 06/13/17 12:46 Gram Stain - Final Other 06/13/17 12:44 Gram Stain - Final Other 06/13/17 12:02 Gram Stain - Final Knee, Left 06/13/17 12:03 Gram Stain - Final Knee, Left Med Orders - Current: Current Medications Amlodipine Besylate (Norvasc) 2.5 mg PO DAILY [facility] Aspirin (Ecotrin) 325 mg PO BID [facility] Bisacodyl (Dulcolax) 5 mg PO DAILY PRN PRN Reason: Constipation Cyclobenzaprine HCl (Flexeril) 10 mg PO TID PRN PRN Reason: Spasms Docusate Sodium (Colace) 100 mg PO BID [facility] Last Admin: 06/13/17 21:31 Dose: 100 mg Duloxetine HCl (Cymbalta) 60 mg PO DAILY [facility] Famotidine (Pepcid) 20 mg PO Q12H [facility] Last Admin: 06/13/17 21:31 Dose: 20 mg Fentanyl (Sublimaze) 50 mcg IVPUSH Q5M PRN PRN Reason: Pain Stop: 06/14/17 18:00 Hydroxychloroquine Sulfate (Plaquenil) 200 mg PO BID [facility] Last Admin: 06/13/17 21:31 Dose: 200 mg Hydroxyzine HCl (Atarax) 25 - 50 mg PO BEDTIME PRN PRN Reason: as directed Cefazolin Sodium/Dextrose 2 gm (/ Premix) 50 mls @ 100 mls/hr IV Q8H [facility] Stop: 06/14/17 10:59 Last Admin: 06/14/17 02:51 Dose: 100 mls/hr Ketorolac Tromethamine (Toradol) 15 mg IVPUSH Q6H PRN PRN Reason: Pain Last Admin: 06/13/17 19:30 Dose: 15 mg Levothyroxine Sodium (Levothyroxine) 200 mcg PO ACBRK [facility] Last Admin: 06/14/17 05:07 Dose: 200 mcg Lisinopril (Prinivil) 20 mg PO DAILY [facility] Magnesium Hydroxide (Milk Of Magnesia) 30 ml PO BID PRN PRN Reason: Constipation Morphine Sulfate (Morphine) 2 mg IVPUSH Q2H PRN PRN Reason: Breakthrough Pain Last Admin: 06/14/17 03:02 Dose: 2 mg Naloxone HCl (Narcan) 0.1 mg IVPUSH Q5M PRN PRN Reason: Oversedation Non-Formulary Medication (Lactobacillus Acidophilus [Probiotic]) 1 cap PO DAILY [facility] Ondansetron HCl (Zofran) 4 mg IVPUSH Q6H PRN PRN Reason: Nausea/Vomiting Oxycodone/Acetaminophen (Percocet 325-5 Mg) 1 - 2 tab PO Q4H PRN PRN Reason: Pain Last Admin: 06/14/17 05:07 Dose: 2 tab Senna (Senna) 8.6 mg PO BID PRN PRN Reason: Constipation Sildenafil Citrate (Revatio) 20 mg PO ASDIRECTED PRN PRN Reason: as directed Temazepam (Restoril) 30 mg PO BEDTIME [facility] Last Admin: 06/13/17 22:08 Dose: Not Given Tramadol HCl (Ultram) 50 mg PO Q4H PRN PRN Reason: Pain Discontinued Medications Acetaminophen (Tylenol) 975 mg PO ASDIRECTED [facility] Stop: 06/13/17 12:00 Last Admin: 06/13/17 10:14 Dose: 975 mg Albuterol (Proventil Neb Soln) 2.5 mg NEB ONETIME ONE Stop: 06/13/17 18:00 Last Admin: 06/13/17 22:45 Dose: Not Given Bupivacaine HCl (Marcaine 0.25%) Confirm Administered Dose 30 ml .ROUTE .STK- MED ONE Stop: 06/13/17 09:38 Last Admin: 06/13/17 14:39 Dose: 30 ml Bupivacaine HCl (Sensorcaine-Mpf 0.25%) Confirm Administered Dose 10 ml .ROUTE .STK-MED ONE Stop: 06/13/17 11:49 Cefazolin Sodium (Ancef) Confirm Administered Dose 2 gm .ROUTE .STK-MED ONE Stop: 06/13/17 09:38 Last Admin: 06/13/17 14:35 Dose: 2 gm Cefazolin Sodium (Ancef) Confirm Administered Dose 2 gm .ROUTE .STK-MED ONE Stop: 06/13/17 10:27 Cefazolin Sodium (Ancef) Confirm Administered Dose 2 gm .ROUTE .STK-MED ONE Stop: 06/13/17 15:16 Morphine Sulfate 8 mg/Epinephrine HCl 0.3 mg/Cefuroxime Sodium 750 mg/Ketorolac Tromethamine 30 mg/Sodium Chloride 27.9 ml 0 mg .XX ONETIME ONE Stop: 06/13/17 11:21 Last Admin: 06/13/17 14:38 Dose: 788.3 mg Diphenhydramine HCl (Benadryl) 25 mg IVPUSH Q6H PRN PRN Reason: Pruritis Stop: 06/13/17 18:00 Ephedrine Sulfate (Ephedrine In Ns) Confirm Administered Dose 25 mg .ROUTE .STK- MED ONE Stop: 06/13/17 11:41 Epinephrine HCl (Adrenalin) Confirm Administered Dose 1 mg .ROUTE .STK-MED ONE Stop: 06/13/17 13:04 Fentanyl (Sublimaze) Confirm Administered Dose 100 mcg .ROUTE .STK-MED ONE Stop: 06/13/17 10:22 Fentanyl (Sublimaze) Confirm Administered Dose 250 mcg .ROUTE .STK-MED ONE Stop: 06/13/17 10:41 Fentanyl (Sublimaze) 50 mcg IVPUSH Q5M PRN PRN Reason: Pain Stop: 06/13/17 14:00 Last Admin: 06/13/17 16:08 Dose: 50 mcg Fentanyl (Sublimaze) Confirm Administered Dose 100 mcg .ROUTE .STK-MED ONE Stop: 06/13/17 15:20 Glycopyrrolate (Robinul) Confirm Administered Dose 0.2 mg .ROUTE .STK-MED ONE Stop: 06/13/17 12:23 Haloperidol Lactate (Haldol) 1 mg IVPUSH ONETIME ONE Stop: 06/13/17 14:54 Hydromorphone HCl (Dilaudid) 0.5 mg IVPUSH ONETIME PRN PRN Reason: Pain (severe 7-10) Stop: 06/13/17 13:00 Hydromorphone HCl (Dilaudid) Confirm Administered Dose 0.5 mg .ROUTE .STK-MED ONE Stop: 06/13/17 12:05 Hydromorphone HCl (Dilaudid) Confirm Administered Dose 0.5 mg .ROUTE .STK-MED ONE Stop: 06/13/17 12:53 Hydromorphone HCl (Dilaudid) Confirm Administered Dose 0.5 mg .ROUTE .STK-MED ONE Stop: 06/13/17 14:50 Hydromorphone HCl (Dilaudid) 0.5 mg IVPUSH ASDIRECTED PRN PRN Reason: Severe Pain Stop: 06/13/17 16:00 Last Admin: 06/13/17 16:10 Dose: 0.5 mg Hydromorphone HCl (Dilaudid) Confirm Administered Dose 0.5 mg .ROUTE .STK-MED ONE Stop: 06/13/17 14:57 Hydromorphone HCl (Dilaudid) Confirm Administered Dose 0.5 mg .ROUTE .STK-MED ONE Stop: 06/13/17 15:29 Lactated Ringer's (Ringers, Lactated) 1,000 mls @ 125 mls/hr IV ASDIRECTED BRAD Stop: 06/13/17 23:00 Last Admin: 06/13/17 18:13 Dose: 125 mls/hr Lactated Ringer's (Ringers, Lactated) Confirm Administered Dose 1,000 mls @ as directed .ROUTE .STK-MED ONE Stop: 06/13/17 10:28 Lactated Ringer's (Ringers, Lactated) Confirm Administered Dose 1,000 mls @ as directed .ROUTE .STK-MED ONE Stop: 06/13/17 10:28 Lidocaine HCl (Xylocaine-Mpf 1%) Confirm Administered Dose 4 mls @ as directed .ROUTE .STK-MED ONE Stop: 06/13/17 10:41 Lidocaine HCl (Xylocaine-Mpf 1%) Confirm Administered Dose 2 mls @ as directed .ROUTE .STK-MED ONE Stop: 06/13/17 15:10 Ketamine HCl (Ketalar) Confirm Administered Dose 500 mg .ROUTE .STK-MED ONE Stop: 06/13/17 12:06 Ketorolac Tromethamine (Toradol) Confirm Administered Dose 30 mg .ROUTE .STK- MED ONE Stop: 06/13/17 13:08 Lidocaine/Sodium Bicarbonate (Buffered Lidocaine 1% In Ns 8.4%) 0.25 ml IDERM ONETIME PRN PRN Reason: Prior to IV Start Stop: 06/13/17 18:00 Meperidine HCl (Demerol) 12.5 mg IVPUSH ONETIME PRN PRN Reason: shivering Stop: 06/13/17 14:00 Meperidine HCl (Demerol) 12.5 mg IVPUSH ONETIME PRN PRN Reason: Shivering Stop: 06/13/17 14:54 Methylprednisolone Sodium Succinate (Solu-Medrol) Confirm Administered Dose 125 mg .ROUTE .ST-MED ONE Stop: 06/13/17 11:39 Midazolam HCl (Versed 1 Mg/Ml) Confirm Administered Dose 2 mg .ROUTE .STK-MED ONE Stop: 06/13/17 10:22 Ondansetron HCl (Zofran) 4 mg IVPUSH ONETIME PRN PRN Reason: Nausea/Vomiting Stop: 06/13/17 18:00 Ondansetron HCl (Zofran) Confirm Administered Dose 4 mg .ROUTE .STK-MED ONE Stop: 06/13/17 11:47 Oxycodone HCl (Oxycontin) 10 mg PO ASDIRECTED [facility] Stop: 06/13/17 12:00 Last Admin: 06/13/17 10:15 Dose: 10 mg Phenylephrine HCl (Kalia-Synephrine) Confirm Administered Dose 10 mg .ROUTE .STK- MED ONE Stop: 06/13/17 12:30 Pregabalin (Lyrica) 50 mg PO ASDIRECTED [facility] Stop: 06/13/17 12:00 Last Admin: 06/13/17 10:14 Dose: 50 mg Propofol (Diprivan 20 Ml) Confirm Administered Dose 200 mg .ROUTE .STK-MED ONE Stop: 06/13/17 10:22 Propofol (Diprivan 20 Ml) Confirm Administered Dose 200 mg .ROUTE .STK-MED ONE Stop: 06/13/17 13:45 Propofol (Diprivan 20 Ml) Confirm Administered Dose 200 mg .ROUTE .STK-MED ONE Stop: 06/13/17 13:45 Rocuronium Terril (Zemuron) Confirm Administered Dose 50 mg .ROUTE .STK-MED ONE Stop: 06/13/17 10:45 Ropivacaine (Naropin 0.5%) Confirm Administered Dose 30 ml .ROUTE .STK-MED ONE Stop: 06/13/17 13:04 Scopolamine (Transderm-Scop) 1.5 mg TOP ONETIME ONE Stop: 06/13/17 10:43 Last Admin: 06/13/17 11:11 Dose: 1.5 mg Sodium Chloride (Saline Flush) 10 ml FLUSH ASDIRECTED PRN PRN Reason: Keep Vein Open Stop: 06/13/17 18:00 Tranexamic Acid (Cyklokapron) Confirm Administered Dose 1,000 mg .ROUTE .STK- MED ONE Stop: 06/13/17 09:38 Last Admin: 06/13/17 14:43 Dose: 1,000 mg Triamcinolone Acetonide (Kenalog-40) Confirm Administered Dose 40 mg .ROUTE .STK -MED ONE Stop: 06/13/17 09:38 Triamcinolone Acetonide (Kenalog-40) Confirm Administered Dose 40 mg .ROUTE .STK -MED ONE Stop: 06/13/17 11:07 Vancomycin HCl (Vancomycin) Confirm Administered Dose 1 gm .ROUTE .STK-MED ONE Stop: 06/13/17 09:38 Last Admin: 06/13/17 14:41 Dose: 1 gm - Exam Quality Assessment: DVT Prophylaxis. No: Supplemental Oxygen General: Alert, Oriented, Cooperative, No Acute Distress HEENT: Pupils Equal, Pupils Reactive, EOMI, Mucous Membr. Moist/[place] Neck: Supple, Trachea Midline, No JVD Lungs: Clear to Auscultation, Normal Respiratory Effort Cardiovascular: Regular Rate, Regular Rhythm GI/Abdominal Exam: Normal Bowel Sounds, Soft, Non-Tender, No Organomegaly, No Distention, No Abnormal Bruit, No Mass, Pelvis Stable (Male) Exam: Deferred Back Exam: Normal Inspection, Full Range of Motion Extremities: No Pedal Edema, Normal Capillary Refill, Leg Pain, Limited Range of Motion, Other Peripheral Pulses: 2+: Radial (L), Radial (R), Posterior Tibial (L), Posterior Tibial (R), Dorsalis Pedis (L), Dorsalis Pedis (R) Skin: Warm, Dry, Intact Wound/Incisions: Dressing Dry and Intact, No Drainage Neurological: No New Focal Deficit Psy/Mental Status: Alert, Normal Affect, Normal Mood Consult PN Assessment/Plan POD#: 1 Procedures: Procedures ASSAY OF CREATININE (09/03/15) ASSAY OF LIPASE (05/29/15) ASSAY OF PSA TOTAL (01/06/16) C-REACTIVE PROTEIN (03/15/17) CCP ANTIBODY (05/26/16) COMPLETE CBC W/AUTO DIFF WBC (03/15/17) COMPREHEN METABOLIC PANEL (05/29/15) CT ABD & PELVIS W/O CONTRAST (05/29/15) CT ABDOMEN W/DYE (10/03/14) DXA BONE DENSITY AXIAL (04/12/17) EMERGENCY DEPT VISIT (05/29/15) EMERGENCY DEPT VISIT (07/29/14) FIBRIN DEGRADATION QUANT (07/29/14) HYDRATE IV INFUSION ADD-ON (05/29/15) MR-STAPH DNA AMP PROBE (01/13/16) MRI LUMBAR SPINE W/O & W/DYE (12/19/15) PRP I/GÉNESIS INIT REDUC >5 YR (01/21/16) RBC SED RATE AUTOMATED (03/15/17) REMOVAL OF SPERM CORD LESION (01/21/16) ROUTINE VENIPUNCTURE (03/15/17) THER/PROPH/DIAG INJ IV PUSH (05/29/15) TX/PRO/DX INJ NEW DRUG ADDON (05/29/15) URINALYSIS AUTO W/SCOPE (05/29/15) X-RAY EXAM L-S SPINE 2/3 VWS (12/19/15) X-RAY EXAM OF HAND (01/21/15) X-RAY EXAM OF SKULL (12/19/15) (1) Status post revision of total replacement of left knee SNOMED Code(s): 154460365, 2014564482894 Code(s): Z96.652 - PRESENCE OF LEFT ARTIFICIAL KNEE JOINT Priority: High Current Visit: Yes (2) Osteoarthritis SNOMED Code(s): 472724963 Code(s): M19.90 - UNSPECIFIED OSTEOARTHRITIS, UNSPECIFIED SITE Priority: High Current Visit: Yes Qualifiers: Osteoarthritis location: knee Osteoarthritis type: primary Laterality: bilateral Qualified Code(s): M17.0 - Bilateral primary osteoarthritis of knee (3) HTN (hypertension) SNOMED Code(s): 28886232 Code(s): I10 - ESSENTIAL (PRIMARY) HYPERTENSION Priority: Medium Current Visit: Yes Qualifiers: Hypertension type: unspecified Qualified Code(s): I10 - Essential (primary ) hypertension (4) Anxiety SNOMED Code(s): 74725787 Code(s): F41.9 - ANXIETY DISORDER, UNSPECIFIED Priority: Low Current Visit: No (5) GERD (gastroesophageal reflux disease) SNOMED Code(s): 343559706 Code(s): K21.9 - GASTRO-ESOPHAGEAL REFLUX DISEASE WITHOUT ESOPHAGITIS Priority: Medium Current Visit: No Qualifiers: Esophagitis presence: esophagitis presence not specified Qualified Code(s) : K21.9 - Gastro-esophageal reflux disease without esophagitis (6) H/O discectomy SNOMED Code(s): 630124232, 249702980 Code(s): Z98.890 - OTHER SPECIFIED POSTPROCEDURAL STATES Priority: Low Current Visit: No (7) HLD (hyperlipidemia) SNOMED Code(s): 71446575 Code(s): E78.5 - HYPERLIPIDEMIA, UNSPECIFIED Priority: Low Current Visit : No Qualifiers: Hyperlipidemia type: unspecified Qualified Code(s): E78.5 - Hyperlipidemia , unspecified (8) Hypogonadism SNOMED Code(s): 27169861 Code(s): GYC4991 - Priority: Low Current Visit: No (9) Hypothyroid SNOMED Code(s): 90897579 Code(s): E03.9 - HYPOTHYROIDISM, UNSPECIFIED Priority: Medium Current Visit: No Qualifiers: Hypothyroidism type: unspecified Qualified Code(s): E03.9 - Hypothyroidism , unspecified (10) Insomnia SNOMED Code(s): 080186572 Code(s): G47.00 - INSOMNIA, UNSPECIFIED Priority: Low Current Visit: No Qualifiers: Insomnia type: unspecified Qualified Code(s): G47.00 - Insomnia, unspecified (11) Irritable bowel syndrome SNOMED Code(s): 77249625 Code(s): K58.9 - IRRITABLE BOWEL SYNDROME WITHOUT DIARRHEA Priority: Low Current Visit: No Qualifiers: Irritable bowel syndrome type: unspecified Qualified Code(s): K58.9 - Irritable bowel syndrome without diarrhea (12) Other specified depressive episodes SNOMED Code(s): 26132770 Code(s): F32.89 - OTHER SPECIFIED DEPRESSIVE EPISODES Priority: Low Current Visit: No (13) Respiratory distress SNOMED Code(s): 466546078 Code(s): R06.03 - ACUTE RESPIRATORY DISTRESS Current Visit: Yes Problem List Initiated/Reviewed/Updated: Yes Plan: I/P: Acute: S/P left total knee arthroplasty - post-operative day 1 -DVT prophylaxis and pain management per primary care team -PT/OT -IS/RT -Monitor oxygen saturation -Titrate oxygen as needed -Vital signs stable -Monitor labs - Hgb 12.2 s/p cortisone injection -Pain management per primary care team Osteoarthritits of bilateral knees -Management per primary team s/p acute respiratory distress -Likely 2/2 anesthesia -Reports history of similar episode after prior anesthesia/surgery -Was brought to ICU on 10L via mask post surgically -Weaned down to room air early this AM. -Doing well today - good saturations, vitals stable -IS/Pulmonary toilet Chronic: HTN HLD GERD IBS Depression Anxiety Hypogonadism Insomnia Hypothyroid Elevated PSA Plan: Due to difficulty with oxygenation post- surgical will keep one more day to monitor Telemetry CM for discharge planning GI prophylaxis: Pepcid DVT/PE prophylaxis: BRIAN miller, SCD, ASA Home medications as indicated Other orders as listed above Routine AM labs He is a full code. His PCP is Willy Thacker. Thank you for allowing us to participate in the care of this patient!!
--- NOTE | 2017-06-14 08:02 | PCM48HPAN ---
Post Anesthesia Note - EVALUATION WITHIN 48HRS OF ANESTHETIC Vital Signs in Normal Range: Yes Patient Participated in Evaluation: Yes Respiratory Function Stable: Yes (up to bathroom) Airway Patent: Yes Cardiovascular Function Stable: Yes Hydration Status Stable: Yes Pain Control Satisfactory: Yes (pain behind knee) Nausea and Vomiting Control Satisfactory: Yes (none- patch in place) Mental Status Recovered: Yes Pulse Rate: 91 SaO2: 94 Resp Rate: 18 Temperature: 98.1 F Blood Pressure: 126/86
--- NOTE | 2017-06-14 08:09 | PCM.SURGPN ---
- General Info Date of Service: 06/14/17 POD#: 1 Functional Status: Reports: Pain Controlled, Tolerating Diet, Ambulating, Urinating, Incentive Spirometry - Review of Systems Musculoskeletal: Reports: Other (The pt has been ambulating in his room. He reports numbness at lower left leg.) - Patient Data Vitals - Most Recent: Last Vital Signs Temp 98.1 F 06/14/17 08:01 Pulse 91 06/14/17 08:01 Resp 18 06/14/17 08:01 BP 126/86 06/14/17 08:01 Pulse Ox 94 L 06/14/17 08:01 Weight - Most Recent: 256 lb I&O - Last 24 Hours: Intake & Output 06/13/17 06/14/17 06/14/17 22:59 06:59 14:59 Intake Total 1550 1951 Output Total 425 755 Balance 1125 1196 Lab Results Last 24 Hrs: Laboratory Results - last 24 hr 06/14/17 06/14/17 Range/Units 05:45 05:49 WBC 12.79 H (4.23-9.07) K/mm3 RBC 3.83 L (4.63-6.08) M/mm3 Hgb 12.2 L (13.7-17.5) gm/L Hct 36.8 L (40.1-51.0) % MCV 96.1 H (79.0-92.2) fl MCH 31.9 (25.7-32.2) pg MCHC 33.2 (32.2-35.5) g/dl RDW Std Deviation 41.8 (35.1-43.9) fL Plt Count 271 (163-337) K/mm3 MPV 9.9 (9.4-12.3) fl Sodium 137 (136-145) mEq/L Potassium 4.2 (3.5-5.1) mEq/L Chloride 103 (98-107) mEq/L Carbon Dioxide 25 (21-32) mEq/L Anion Gap 13.2 (5-15) BUN 18 (7-18) mg/dL Creatinine 1.1 (0.7-1.3) mg/dL Est Cr Clr Drug Dosing 78.38 mL/min Estimated GFR (MDRD) > 60 (>60) mL/min BUN/Creatinine Ratio 16.4 (14-18) Glucose 141 H (74-106) mg/dL Calcium 8.4 L (8.5-10.1) mg/dL Total Bilirubin 0.4 (0.2-1.0) mg/dL AST 55 H (15-37) U/L ALT 34 (16-63) U/L Alkaline Phosphatase 78 (46-116) U/L Total Protein 6.1 L (6.4-8.2) g/dl Albumin 3.0 L (3.4-5.0) g/dl Globulin 3.1 gm/dL Albumin/Globulin Ratio 1.0 (1-2) Johan Results Last 24 Hrs: Microbiology 06/13/17 12:02 Gram Stain - Final Knee, Left 06/13/17 12:46 Gram Stain - Final Other 06/13/17 12:44 Gram Stain - Final Other 06/13/17 12:02 Gram Stain - Final Knee, Left 06/13/17 12:03 Gram Stain - Final Knee, Left Med Orders - Current: Current Medications Amlodipine Besylate (Norvasc) 2.5 mg PO DAILY [facility] Aspirin (Ecotrin) 325 mg PO BID [facility] Bisacodyl (Dulcolax) 5 mg PO DAILY PRN PRN Reason: Constipation Cyclobenzaprine HCl (Flexeril) 10 mg PO TID PRN PRN Reason: Spasms Docusate Sodium (Colace) 100 mg PO BID [facility] Last Admin: 06/13/17 21:31 Dose: 100 mg Duloxetine HCl (Cymbalta) 60 mg PO DAILY [facility] Famotidine (Pepcid) 20 mg PO Q12H [facility] Last Admin: 06/13/17 21:31 Dose: 20 mg Fentanyl (Sublimaze) 50 mcg IVPUSH Q5M PRN PRN Reason: Pain Stop: 06/14/17 18:00 Hydroxychloroquine Sulfate (Plaquenil) 200 mg PO BID [facility] Last Admin: 06/13/17 21:31 Dose: 200 mg Hydroxyzine HCl (Atarax) 25 - 50 mg PO BEDTIME PRN PRN Reason: as directed Cefazolin Sodium/Dextrose 2 gm (/ Premix) 50 mls @ 100 mls/hr IV Q8H [facility] Stop: 06/14/17 10:59 Last Admin: 06/14/17 02:51 Dose: 100 mls/hr Ketorolac Tromethamine (Toradol) 15 mg IVPUSH Q6H PRN PRN Reason: Pain Last Admin: 06/13/17 19:30 Dose: 15 mg Levothyroxine Sodium (Levothyroxine) 200 mcg PO ACBRK [facility] Last Admin: 06/14/17 05:07 Dose: 200 mcg Lisinopril (Prinivil) 20 mg PO DAILY [facility] Magnesium Hydroxide (Milk Of Magnesia) 30 ml PO BID PRN PRN Reason: Constipation Morphine Sulfate (Morphine) 2 mg IVPUSH Q2H PRN PRN Reason: Breakthrough Pain Last Admin: 06/14/17 03:02 Dose: 2 mg Naloxone HCl (Narcan) 0.1 mg IVPUSH Q5M PRN PRN Reason: Oversedation Non-Formulary Medication (Lactobacillus Acidophilus [Probiotic]) 1 cap PO DAILY [facility] Ondansetron HCl (Zofran) 4 mg IVPUSH Q6H PRN PRN Reason: Nausea/Vomiting Oxycodone/Acetaminophen (Percocet 325-5 Mg) 1 - 2 tab PO Q4H PRN PRN Reason: Pain Last Admin: 06/14/17 05:07 Dose: 2 tab Senna (Senna) 8.6 mg PO BID PRN PRN Reason: Constipation Sildenafil Citrate (Revatio) 20 mg PO ASDIRECTED PRN PRN Reason: as directed Temazepam (Restoril) 30 mg PO BEDTIME [facility] Last Admin: 06/13/17 22:08 Dose: Not Given Tramadol HCl (Ultram) 50 mg PO Q4H PRN PRN Reason: Pain Discontinued Medications Acetaminophen (Tylenol) 975 mg PO ASDIRECTED [facility] Stop: 06/13/17 12:00 Last Admin: 06/13/17 10:14 Dose: 975 mg Albuterol (Proventil Neb Soln) 2.5 mg NEB ONETIME ONE Stop: 06/13/17 18:00 Last Admin: 06/13/17 22:45 Dose: Not Given Bupivacaine HCl (Marcaine 0.25%) Confirm Administered Dose 30 ml .ROUTE .STK- MED ONE Stop: 06/13/17 09:38 Last Admin: 06/13/17 14:39 Dose: 30 ml Bupivacaine HCl (Sensorcaine-Mpf 0.25%) Confirm Administered Dose 10 ml .ROUTE .STK-MED ONE Stop: 06/13/17 11:49 Cefazolin Sodium (Ancef) Confirm Administered Dose 2 gm .ROUTE .STK-MED ONE Stop: 06/13/17 09:38 Last Admin: 06/13/17 14:35 Dose: 2 gm Cefazolin Sodium (Ancef) Confirm Administered Dose 2 gm .ROUTE .STK-MED ONE Stop: 06/13/17 10:27 Cefazolin Sodium (Ancef) Confirm Administered Dose 2 gm .ROUTE .STK-MED ONE Stop: 06/13/17 15:16 Morphine Sulfate 8 mg/Epinephrine HCl 0.3 mg/Cefuroxime Sodium 750 mg/Ketorolac Tromethamine 30 mg/Sodium Chloride 27.9 ml 0 mg .XX ONETIME ONE Stop: 06/13/17 11:21 Last Admin: 06/13/17 14:38 Dose: 788.3 mg Diphenhydramine HCl (Benadryl) 25 mg IVPUSH Q6H PRN PRN Reason: Pruritis Stop: 06/13/17 18:00 Ephedrine Sulfate (Ephedrine In Ns) Confirm Administered Dose 25 mg .ROUTE .STK- MED ONE Stop: 06/13/17 11:41 Epinephrine HCl (Adrenalin) Confirm Administered Dose 1 mg .ROUTE .STK-MED ONE Stop: 06/13/17 13:04 Fentanyl (Sublimaze) Confirm Administered Dose 100 mcg .ROUTE .STK-MED ONE Stop: 06/13/17 10:22 Fentanyl (Sublimaze) Confirm Administered Dose 250 mcg .ROUTE .STK-MED ONE Stop: 06/13/17 10:41 Fentanyl (Sublimaze) 50 mcg IVPUSH Q5M PRN PRN Reason: Pain Stop: 06/13/17 14:00 Last Admin: 06/13/17 16:08 Dose: 50 mcg Fentanyl (Sublimaze) Confirm Administered Dose 100 mcg .ROUTE .STK-MED ONE Stop: 06/13/17 15:20 Glycopyrrolate (Robinul) Confirm Administered Dose 0.2 mg .ROUTE .STK-MED ONE Stop: 06/13/17 12:23 Haloperidol Lactate (Haldol) 1 mg IVPUSH ONETIME ONE Stop: 06/13/17 14:54 Last Admin: 06/14/17 08:02 Dose: Not Given Hydromorphone HCl (Dilaudid) 0.5 mg IVPUSH ONETIME PRN PRN Reason: Pain (severe 7-10) Stop: 06/13/17 13:00 Hydromorphone HCl (Dilaudid) Confirm Administered Dose 0.5 mg .ROUTE .STK-MED ONE Stop: 06/13/17 12:05 Hydromorphone HCl (Dilaudid) Confirm Administered Dose 0.5 mg .ROUTE .STK-MED ONE Stop: 06/13/17 12:53 Hydromorphone HCl (Dilaudid) Confirm Administered Dose 0.5 mg .ROUTE .STK-MED ONE Stop: 06/13/17 14:50 Hydromorphone HCl (Dilaudid) 0.5 mg IVPUSH ASDIRECTED PRN PRN Reason: Severe Pain Stop: 06/13/17 16:00 Last Admin: 06/13/17 16:10 Dose: 0.5 mg Hydromorphone HCl (Dilaudid) Confirm Administered Dose 0.5 mg .ROUTE .STK-MED ONE Stop: 06/13/17 14:57 Hydromorphone HCl (Dilaudid) Confirm Administered Dose 0.5 mg .ROUTE .STK-MED ONE Stop: 06/13/17 15:29 Lactated Ringer's (Ringers, Lactated) 1,000 mls @ 125 mls/hr IV ASDIRECTED [facility] Stop: 06/13/17 23:00 Last Admin: 06/13/17 18:13 Dose: 125 mls/hr Lactated Ringer's (Ringers, Lactated) Confirm Administered Dose 1,000 mls @ as directed .ROUTE .STK-MED ONE Stop: 06/13/17 10:28 Lactated Ringer's (Ringers, Lactated) Confirm Administered Dose 1,000 mls @ as directed .ROUTE .STK-MED ONE Stop: 06/13/17 10:28 Lidocaine HCl (Xylocaine-Mpf 1%) Confirm Administered Dose 4 mls @ as directed .ROUTE .STK-MED ONE Stop: 06/13/17 10:41 Lidocaine HCl (Xylocaine-Mpf 1%) Confirm Administered Dose 2 mls @ as directed .ROUTE .STK-MED ONE Stop: 06/13/17 15:10 Ketamine HCl (Ketalar) Confirm Administered Dose 500 mg .ROUTE .STK-MED ONE Stop: 06/13/17 12:06 Ketorolac Tromethamine (Toradol) Confirm Administered Dose 30 mg .ROUTE .STK- MED ONE Stop: 06/13/17 13:08 Lidocaine/Sodium Bicarbonate (Buffered Lidocaine 1% In Ns 8.4%) 0.25 ml IDERM ONETIME PRN PRN Reason: Prior to IV Start Stop: 06/13/17 18:00 Meperidine HCl (Demerol) 12.5 mg IVPUSH ONETIME PRN PRN Reason: shivering Stop: 06/13/17 14:00 Meperidine HCl (Demerol) 12.5 mg IVPUSH ONETIME PRN PRN Reason: Shivering Stop: 06/13/17 14:54 Methylprednisolone Sodium Succinate (Solu-Medrol) Confirm Administered Dose 125 mg .ROUTE .STK-MED ONE Stop: 06/13/17 11:39 Midazolam HCl (Versed 1 Mg/Ml) Confirm Administered Dose 2 mg .ROUTE .STK-MED ONE Stop: 06/13/17 10:22 Ondansetron HCl (Zofran) 4 mg IVPUSH ONETIME PRN PRN Reason: Nausea/Vomiting Stop: 06/13/17 18:00 Ondansetron HCl (Zofran) Confirm Administered Dose 4 mg .ROUTE .STK-MED ONE Stop: 06/13/17 11:47 Oxycodone HCl (Oxycontin) 10 mg PO ASDIRECTED [facility] Stop: 06/13/17 12:00 Last Admin: 06/13/17 10:15 Dose: 10 mg Phenylephrine HCl ([place]-Synephrine) Confirm Administered Dose 10 mg .ROUTE .STK- MED ONE Stop: 06/13/17 12:30 Pregabalin (Lyrica) 50 mg PO ASDIRECTED [facility] Stop: 06/13/17 12:00 Last Admin: 06/13/17 10:14 Dose: 50 mg Propofol (Diprivan 20 Ml) Confirm Administered Dose 200 mg .ROUTE .STK-MED ONE Stop: 06/13/17 10:22 Propofol (Diprivan 20 Ml) Confirm Administered Dose 200 mg .ROUTE .STK-MED ONE Stop: 06/13/17 13:45 Propofol (Diprivan 20 Ml) Confirm Administered Dose 200 mg .ROUTE .STK-MED ONE Stop: 06/13/17 13:45 Rocuronium [place] (Zemuron) Confirm Administered Dose 50 mg .ROUTE .STK-MED ONE Stop: 06/13/17 10:45 Ropivacaine (Naropin 0.5%) Confirm Administered Dose 30 ml .ROUTE .STK-MED ONE Stop: 06/13/17 13:04 Scopolamine (Transderm-Scop) 1.5 mg TOP ONETIME ONE Stop: 06/13/17 10:43 Last Admin: 06/13/17 11:11 Dose: 1.5 mg Sodium Chloride (Saline Flush) 10 ml FLUSH ASDIRECTED PRN PRN Reason: Keep Vein Open Stop: 06/13/17 18:00 Tranexamic Acid (Cyklokapron) Confirm Administered Dose 1,000 mg .ROUTE .STK- MED ONE Stop: 06/13/17 09:38 Last Admin: 06/13/17 14:43 Dose: 1,000 mg Triamcinolone Acetonide (Kenalog-40) Confirm Administered Dose 40 mg .ROUTE .STK -MED ONE Stop: 06/13/17 09:38 Triamcinolone Acetonide (Kenalog-40) Confirm Administered Dose 40 mg .ROUTE .STK -MED ONE Stop: 06/13/17 11:07 Vancomycin HCl (Vancomycin) Confirm Administered Dose 1 gm .ROUTE .STK-MED ONE Stop: 06/13/17 09:38 Last Admin: 06/13/17 14:41 Dose: 1 gm - Exam Wound/Incisions: Dressing Dry and Intact General: Alert, Cooperative, No Acute Distress Lungs: Normal Respiratory Effort Cardiovascular: Other (Periph pulses for LLE normal.) Extremities: Other (The pt was able to sense light touch at left lower leg, however, reported decreased ability to sense touch compared to right. Antonino's negative LLE. Active DF left ankle noted.) - Problem List Review Problem List Initiated/Reviewed/Updated: Yes - My Orders Last 24 Hours: Active Orders 24 hr Category Date Time Status Patient Status Manage Transfer [TRANSFER] Routine ADT 06/13/17 18:14 Active Notify Provider [RC] ASDIRECTED Care 06/13/17 14:53 Active RT Aerosol Therapy [RC] ASDIRECTED Care 06/13/17 17:59 Active Ready for Discharge [RC] PER UNIT ROUTINE Care 06/14/17 08:06 Ordered Regular Diet [DIET] Diet 06/13/17 Lunch Active CULTURE ANAEROBIC + SMEAR [RM] Routine Lab 06/13/17 12:44 Results CULTURE ANAEROBIC + SMEAR [RM] Routine Lab 06/13/17 12:46 Results CULTURE ANAEROBIC + SMEAR [RM] Stat Lab 06/13/17 12:02 Results CULTURE ANAEROBIC + SMEAR [RM] Stat Lab 06/13/17 12:02 Results CULTURE ANAEROBIC + SMEAR [RM] Stat Lab 06/13/17 12:03 Results Acetaminophen/oxyCODONE [Percocet 325-5 MG] Med 06/13/17 13:00 Active 1 - 2 tab PO Q4H PRN Aspirin [Ecotrin] Med 06/14/17 09:00 Active 325 mg PO BID Bisacodyl [Dulcolax] Med 06/13/17 13:00 Active 5 mg PO DAILY PRN Cyclobenzaprine [Flexeril] Med 06/13/17 13:00 Active 10 mg PO TID PRN DULoxetine [Cymbalta] Med 06/14/17 09:00 Active 60 mg PO DAILY Docusate Sodium [Colace] Med 06/13/17 21:00 Active 100 mg PO BID Famotidine [Pepcid] Med 06/13/17 21:00 Active 20 mg PO Q12H Hydroxychloroquine [Plaquenil] Med 06/13/17 21:00 Active 200 mg PO BID Ketorolac [Toradol] Med 06/13/17 13:00 Active 15 mg IVPUSH Q6H PRN Lactobacillus Acidophilus [Probiotic] Med 06/14/17 09:00 Pending 1 cap PO DAILY Levothyroxine Med 06/14/17 06:00 Active 200 mcg PO ACBRK Lisinopril [Prinivil] Med 06/14/17 09:00 Active 20 mg PO DAILY Magnesium Hydroxide [Milk of Magnesia] Med 06/13/17 13:00 Active 30 ml PO BID PRN Morphine Med 06/13/17 13:00 Active 2 mg IVPUSH Q2H PRN Naloxone [Narcan] Med 06/13/17 13:00 Active 0.1 mg IVPUSH Q5M PRN Ondansetron [Zofran] Med 06/13/17 13:00 Active 4 mg IVPUSH Q6H PRN Sennosides [Senna] Med 06/13/17 13:00 Active 8.6 mg PO BID PRN Sildenafil [Revatio] Med 06/13/17 18:24 Pending 20 mg PO ASDIRECTED PRN Temazepam [Restoril] Med 06/13/17 21:00 Active 30 mg PO BEDTIME amLODIPine [Norvasc] Med 06/14/17 09:00 Active 2.5 mg PO DAILY ceFAZolin [Ancef] 2 gm Med 06/13/17 18:30 Active Premix Bag 1 bag IV Q8H fentaNYL [Sublimaze] Med 06/13/17 14:53 Active 50 mcg IVPUSH Q5M PRN hydrOXYzine HCl [Atarax] Med 06/13/17 18:24 Pending 25 - 50 mg PO BEDTIME PRN traMADol [Ultram] Med 06/13/17 18:24 Active 50 mg PO Q4H PRN Pulse Oximetry Continuous Monitoring [OM.PC] Routine Oth 06/13/17 17:59 Active EKG 12 Lead [EK] Routine Ther 06/13/17 09:41 Ordered Medication Orders Amlodipine Besylate (Norvasc) 2.5 mg PO DAILY [facility] Aspirin (Ecotrin) 325 mg PO BID [facility] Bisacodyl (Dulcolax) 5 mg PO DAILY PRN PRN Reason: Constipation Cyclobenzaprine HCl (Flexeril) 10 mg PO TID PRN PRN Reason: Spasms Docusate Sodium (Colace) 100 mg PO BID [facility] Last Admin: 06/13/17 21:31 Dose: 100 mg Duloxetine HCl (Cymbalta) 60 mg PO DAILY [facility] Famotidine (Pepcid) 20 mg PO Q12H [facility] Last Admin: 06/13/17 21:31 Dose: 20 mg Fentanyl (Sublimaze) 50 mcg IVPUSH Q5M PRN PRN Reason: Pain Stop: 06/14/17 18:00 Hydroxychloroquine Sulfate (Plaquenil) 200 mg PO BID [facility] Last Admin: 06/13/17 21:31 Dose: 200 mg Hydroxyzine HCl (Atarax) 25 - 50 mg PO BEDTIME PRN PRN Reason: as directed Cefazolin Sodium/Dextrose 2 gm (/ Premix) 50 mls @ 100 mls/hr IV Q8H [facility] Stop: 06/14/17 10:59 Last Admin: 06/14/17 02:51 Dose: 100 mls/hr Infusion: 06/13/17 19:59 Dose: 100 mls/hr Admin: 06/13/17 19:29 Dose: 100 mls/hr Infusion: 06/13/17 16:45 Dose: 100 mls/hr Admin: 06/13/17 16:15 Dose: 100 mls/hr Ketorolac Tromethamine (Toradol) 15 mg IVPUSH Q6H PRN PRN Reason: Pain Last Admin: 06/13/17 19:30 Dose: 15 mg Levothyroxine Sodium (Levothyroxine) 200 mcg PO ACBRK [facility] Last Admin: 06/14/17 05:07 Dose: 200 mcg Lisinopril (Prinivil) 20 mg PO DAILY [facility] Magnesium Hydroxide (Milk Of Magnesia) 30 ml PO BID PRN PRN Reason: Constipation Morphine Sulfate (Morphine) 2 mg IVPUSH Q2H PRN PRN Reason: Breakthrough Pain Last Admin: 06/14/17 03:02 Dose: 2 mg Admin: 06/13/17 23:42 Dose: 2 mg Naloxone HCl (Narcan) 0.1 mg IVPUSH Q5M PRN PRN Reason: Oversedation Non-Formulary Medication (Lactobacillus Acidophilus [Probiotic]) 1 cap PO DAILY [facility] Ondansetron HCl (Zofran) 4 mg IVPUSH Q6H PRN PRN Reason: Nausea/Vomiting Oxycodone/Acetaminophen (Percocet 325-5 Mg) 1 - 2 tab PO Q4H PRN PRN Reason: Pain Last Admin: 06/14/17 05:07 Dose: 2 tab Admin: 06/14/17 00:54 Dose: 2 tab Admin: 06/13/17 19:28 Dose: 2 tab Senna (Senna) 8.6 mg PO BID PRN PRN Reason: Constipation Sildenafil Citrate (Revatio) 20 mg PO ASDIRECTED PRN PRN Reason: as directed Temazepam (Restoril) 30 mg PO BEDTIME [facility] Last Admin: 06/13/17 22:08 Dose: Not Given Tramadol HCl (Ultram) 50 mg PO Q4H PRN PRN Reason: Pain - Assessment Assessment (Free Text/Narrative):: POD#1 - revision left TKA - Plan Plan (Free Text/Narrative):: 1. May discharge to home if cleared by Hospitalist service. 2. Discussed pain management with pt today. 3. 325mg ASA BID, frequent mobility. 4. Outpatient P.T. The pt's case was discussed with Dr. Orellana today.
[2017-06-14] MEDS: amLODIPine 2.5 MG Tab PO SCH (08:14)
[2017-06-14] MEDS: DULoxetine 30 MG Cap PO SCH (08:15)
[2017-06-14] MEDS: Hydroxychloroquine 200 MG Tab PO SCH ×2 (08:15→21:00)
[2017-06-14] MEDS: Aspirin 325 MG Tab.EC PO SCH ×2 (08:15→21:00)
[2017-06-14] MEDS: Famotidine 20 MG Tab PO SCH ×2 (08:15→21:00)
[2017-06-14] MEDS: Docusate Sodium 100 MG Cap PO SCH ×2 (08:16→21:00)
[2017-06-14] MEDS: Lisinopril 20 MG Tab PO SCH (08:16)
[2017-06-14] MEDS: Ketorolac 15 MG/ML SDV IVPUSH PRN ×2 (10:11→18:19)
[2017-06-14] MEDS: Saccharomyces Boulardii (Probiotic) 250 MG Cap PO SCH (10:49)
[2017-06-14] MEDS: Morphine 8 MG, EPINEPHrine 0.3 MG, Cefuroxime 750 MG, Ketorolac 30 MG, Sodium Chloride ... ONE ×5 (17:40)
[2017-06-14] MEDS: Temazepam 30 MG Cap PO SCH (21:00)
[2017-06-15] MEDS: Acetaminophen/oxyCODONE 325-5 MG Tab PO PRN ×2 (04:32→09:46)
--- NOTE | 2017-06-15 08:16 | PCM.SURGPN ---
- General Info Date of Service: 06/15/17 POD#: 2 Functional Status: Reports: Pain Controlled, Tolerating Diet, Ambulating, Urinating, Incentive Spirometry - Review of Systems Musculoskeletal: Reports: Other (Pt continues to note numbness at LLE, anterior and posterior. The area of numbness has decreased since yesterday's evaluation. ) - Patient Data Vitals - Most Recent: Last Vital Signs Temp 97.5 F 06/15/17 01:26 Pulse 66 06/15/17 01:26 Resp 20 06/15/17 01:26 BP 141/77 H 06/15/17 01:26 Pulse Ox 95 06/15/17 01:26 Weight - Most Recent: 246 lb 9.6 oz I&O - Last 24 Hours: Intake & Output 06/14/17 06/15/17 06/15/17 22:59 06:59 14:59 Intake Total 940 300 Output Total 650 600 Balance 290 -300 Johan Results Last 24 Hrs: Microbiology 06/13/17 12:02 Gram Stain - Final Knee, Left Anaerobic Culture - Preliminary NO GROWTH AFTER 1 DAY 06/13/17 12:46 Gram Stain - Final Other Anaerobic Culture - Preliminary NO GROWTH AFTER 1 DAY 06/13/17 12:03 Gram Stain - Final Knee, Left Anaerobic Culture - Preliminary NO GROWTH AFTER 1 DAY 06/13/17 12:02 Gram Stain - Final Knee, Left Anaerobic Culture - Preliminary NO GROWTH AFTER 1 DAY Med Orders - Current: Current Medications Amlodipine Besylate (Norvasc) 2.5 mg PO DAILY [facility] Last Admin: 06/14/17 08:14 Dose: 2.5 mg Aspirin (Ecotrin) 325 mg PO BID [facility] Last Admin: 06/14/17 21:00 Dose: 325 mg Bisacodyl (Dulcolax) 5 mg PO DAILY PRN PRN Reason: Constipation Cyclobenzaprine HCl (Flexeril) 10 mg PO TID PRN PRN Reason: Spasms Last Admin: 06/14/17 21:00 Dose: 10 mg Docusate Sodium (Colace) 100 mg PO BID [facility] Last Admin: 06/14/17 21:00 Dose: 100 mg Duloxetine HCl (Cymbalta) 60 mg PO DAILY [facility] Last Admin: 06/14/17 08:15 Dose: 60 mg Famotidine (Pepcid) 20 mg PO Q12H [facility] Last Admin: 06/14/17 21:00 Dose: 20 mg Hydroxychloroquine Sulfate (Plaquenil) 200 mg PO BID [facility] Last Admin: 06/14/17 21:00 Dose: 200 mg Levothyroxine Sodium (Levothyroxine) 200 mcg PO ACBRK [facility] Last Admin: 06/15/17 06:33 Dose: 200 mcg Lisinopril (Prinivil) 20 mg PO DAILY [facility] Last Admin: 06/14/17 08:16 Dose: 20 mg Magnesium Hydroxide (Milk Of Magnesia) 30 ml PO BID PRN PRN Reason: Constipation Morphine Sulfate (Morphine) 2 mg IVPUSH Q2H PRN PRN Reason: Breakthrough Pain Last Admin: 06/14/17 03:02 Dose: 2 mg Naloxone HCl (Narcan) 0.1 mg IVPUSH Q5M PRN PRN Reason: Oversedation Ondansetron HCl (Zofran) 4 mg IVPUSH Q6H PRN PRN Reason: Nausea/Vomiting Oxycodone/Acetaminophen (Percocet 325-5 Mg) 1 - 2 tab PO Q4H PRN PRN Reason: Pain Last Admin: 06/15/17 04:32 Dose: 2 tab Saccharomyces Boulardii (Florastor) 250 mg PO DAILY [facility] Last Admin: 06/14/17 10:49 Dose: 250 mg Senna (Senna) 8.6 mg PO BID PRN PRN Reason: Constipation Temazepam (Restoril) 30 mg PO BEDTIME [facility] Last Admin: 06/14/17 21:00 Dose: 30 mg Tramadol HCl (Ultram) 50 mg PO Q4H PRN PRN Reason: Pain Discontinued Medications Acetaminophen (Tylenol) 975 mg PO ASDIRECTED [facility] Stop: 06/13/17 12:00 Last Admin: 06/13/17 10:14 Dose: 975 mg Albuterol (Proventil Neb Soln) 2.5 mg NEB ONETIME ONE Stop: 06/13/17 18:00 Last Admin: 06/13/17 22:45 Dose: Not Given Bupivacaine HCl (Marcaine 0.25%) Confirm Administered Dose 30 ml .ROUTE .STK- MED ONE Stop: 06/13/17 09:38 Last Admin: 06/13/17 14:39 Dose: 30 ml Bupivacaine HCl (Sensorcaine-Mpf 0.25%) Confirm Administered Dose 10 ml .ROUTE .STK-MED ONE Stop: 06/13/17 11:49 Cefazolin Sodium (Ancef) Confirm Administered Dose 2 gm .ROUTE .STK-MED ONE Stop: 06/13/17 09:38 Last Admin: 06/13/17 14:35 Dose: 2 gm Cefazolin Sodium (Ancef) Confirm Administered Dose 2 gm .ROUTE .STK-MED ONE Stop: 06/13/17 10:27 Cefazolin Sodium (Ancef) Confirm Administered Dose 2 gm .ROUTE .STK-MED ONE Stop: 06/13/17 15:16 Morphine Sulfate 8 mg/Epinephrine HCl 0.3 mg/Cefuroxime Sodium 750 mg/Ketorolac Tromethamine 30 mg/Sodium Chloride 27.9 ml 0 mg .XX ONETIME ONE Stop: 06/13/17 11:21 Last Admin: 06/14/17 17:40 Dose: Not Given Diphenhydramine HCl (Benadryl) 25 mg IVPUSH Q6H PRN PRN Reason: Pruritis Stop: 06/13/17 18:00 Ephedrine Sulfate (Ephedrine In Ns) Confirm Administered Dose 25 mg .ROUTE .STK- MED ONE Stop: 06/13/17 11:41 Epinephrine HCl (Adrenalin) Confirm Administered Dose 1 mg .ROUTE .STK-MED ONE Stop: 06/13/17 13:04 Fentanyl (Sublimaze) Confirm Administered Dose 100 mcg .ROUTE .STK-MED ONE Stop: 06/13/17 10:22 Fentanyl (Sublimaze) Confirm Administered Dose 250 mcg .ROUTE .STK-MED ONE Stop: 06/13/17 10:41 Fentanyl (Sublimaze) 50 mcg IVPUSH Q5M PRN PRN Reason: Pain Stop: 06/13/17 14:00 Last Admin: 06/13/17 16:08 Dose: 50 mcg Fentanyl (Sublimaze) 50 mcg IVPUSH Q5M PRN PRN Reason: Pain Stop: 06/14/17 18:00 Fentanyl (Sublimaze) Confirm Administered Dose 100 mcg .ROUTE .STK-MED ONE Stop: 06/13/17 15:20 Glycopyrrolate (Robinul) Confirm Administered Dose 0.2 mg .ROUTE .STK-MED ONE Stop: 06/13/17 12:23 Haloperidol Lactate (Haldol) 1 mg IVPUSH ONETIME ONE Stop: 06/13/17 14:54 Last Admin: 06/14/17 08:02 Dose: Not Given Hydromorphone HCl (Dilaudid) 0.5 mg IVPUSH ONETIME PRN PRN Reason: Pain (severe 7-10) Stop: 06/13/17 13:00 Hydromorphone HCl (Dilaudid) Confirm Administered Dose 0.5 mg .ROUTE .STK-MED ONE Stop: 06/13/17 12:05 Hydromorphone HCl (Dilaudid) Confirm Administered Dose 0.5 mg .ROUTE .STK-MED ONE Stop: 06/13/17 12:53 Hydromorphone HCl (Dilaudid) Confirm Administered Dose 0.5 mg .ROUTE .STK-MED ONE Stop: 06/13/17 14:50 Hydromorphone HCl (Dilaudid) 0.5 mg IVPUSH ASDIRECTED PRN PRN Reason: Severe Pain Stop: 06/13/17 16:00 Last Admin: 06/13/17 16:10 Dose: 0.5 mg Hydromorphone HCl (Dilaudid) Confirm Administered Dose 0.5 mg .ROUTE .STK-MED ONE Stop: 06/13/17 14:57 Hydromorphone HCl (Dilaudid) Confirm Administered Dose 0.5 mg .ROUTE .STK-MED ONE Stop: 06/13/17 15:29 Hydroxyzine HCl (Atarax) 25 - 50 mg PO BEDTIME PRN PRN Reason: as directed Lactated Ringer's (Ringers, Lactated) 1,000 mls @ 125 mls/hr IV ASDIRECTED BRAD Stop: 06/13/17 23:00 Last Admin: 06/13/17 18:13 Dose: 125 mls/hr Cefazolin Sodium/Dextrose 2 gm (/ Premix) 50 mls @ 100 mls/hr IV Q8H [facility] Stop: 06/14/17 10:59 Last Admin: 06/14/17 10:45 Dose: Not Given Lactated Ringer's (Ringers, Lactated) Confirm Administered Dose 1,000 mls @ as directed .ROUTE .STK-MED ONE Stop: 06/13/17 10:28 Lactated Ringer's (Ringers, Lactated) Confirm Administered Dose 1,000 mls @ as directed .ROUTE .STK-MED ONE Stop: 06/13/17 10:28 Lidocaine HCl (Xylocaine-Mpf 1%) Confirm Administered Dose 4 mls @ as directed .ROUTE .STK-MED ONE Stop: 06/13/17 10:41 Lidocaine HCl (Xylocaine-Mpf 1%) Confirm Administered Dose 2 mls @ as directed .ROUTE .STK-MED ONE Stop: 06/13/17 15:10 Ketamine HCl (Ketalar) Confirm Administered Dose 500 mg .ROUTE .STK-MED ONE Stop: 06/13/17 12:06 Ketorolac Tromethamine (Toradol) 15 mg IVPUSH Q6H PRN PRN Reason: Pain Last Admin: 06/14/17 18:19 Dose: 15 mg Ketorolac Tromethamine (Toradol) Confirm Administered Dose 30 mg .ROUTE .STK- MED ONE Stop: 06/13/17 13:08 Lidocaine/Sodium Bicarbonate (Buffered Lidocaine 1% In Ns 8.4%) 0.25 ml IDERM ONETIME PRN PRN Reason: Prior to IV Start Stop: 06/13/17 18:00 Meperidine HCl (Demerol) 12.5 mg IVPUSH ONETIME PRN PRN Reason: shivering Stop: 06/13/17 14:00 Meperidine HCl (Demerol) 12.5 mg IVPUSH ONETIME PRN PRN Reason: Shivering Stop: 06/13/17 14:54 Methylprednisolone Sodium Succinate (Solu-Medrol) Confirm Administered Dose 125 mg .ROUTE .STK-MED ONE Stop: 06/13/17 11:39 Midazolam HCl (Versed 1 Mg/Ml) Confirm Administered Dose 2 mg .ROUTE .STK-MED ONE Stop: 06/13/17 10:22 Ondansetron HCl (Zofran) 4 mg IVPUSH ONETIME PRN PRN Reason: Nausea/Vomiting Stop: 06/13/17 18:00 Ondansetron HCl (Zofran) Confirm Administered Dose 4 mg .ROUTE .STK-MED ONE Stop: 06/13/17 11:47 Oxycodone HCl (Oxycontin) 10 mg PO ASDIRECTED BRAD Stop: 06/13/17 12:00 Last Admin: 06/13/17 10:15 Dose: 10 mg Phenylephrine HCl ([place]-Synephrine) Confirm Administered Dose 10 mg .ROUTE .STK- MED ONE Stop: 06/13/17 12:30 Pregabalin (Lyrica) 50 mg PO ASDIRECTED BRAD Stop: 06/13/17 12:00 Last Admin: 06/13/17 10:14 Dose: 50 mg Propofol (Diprivan 20 Ml) Confirm Administered Dose 200 mg .ROUTE .STK-MED ONE Stop: 06/13/17 10:22 Propofol (Diprivan 20 Ml) Confirm Administered Dose 200 mg .ROUTE .STK-MED ONE Stop: 06/13/17 13:45 Propofol (Diprivan 20 Ml) Confirm Administered Dose 200 mg .ROUTE .STK-MED ONE Stop: 06/13/17 13:45 Rocuronium [place] (Zemuron) Confirm Administered Dose 50 mg .ROUTE .STK-MED ONE Stop: 06/13/17 10:45 Ropivacaine (Naropin 0.5%) Confirm Administered Dose 30 ml .ROUTE .STK-MED ONE Stop: 06/13/17 13:04 Scopolamine (Transderm-Scop) 1.5 mg TOP ONETIME ONE Stop: 06/13/17 10:43 Last Admin: 06/13/17 11:11 Dose: 1.5 mg Sildenafil Citrate (Revatio) 20 mg PO ASDIRECTED PRN PRN Reason: as directed Sodium Chloride (Saline Flush) 10 ml FLUSH ASDIRECTED PRN PRN Reason: Keep Vein Open Stop: 06/13/17 18:00 Tranexamic Acid (Cyklokapron) Confirm Administered Dose 1,000 mg .ROUTE .STK- MED ONE Stop: 06/13/17 09:38 Last Admin: 06/13/17 14:43 Dose: 1,000 mg Triamcinolone Acetonide (Kenalog-40) Confirm Administered Dose 40 mg .ROUTE .STK -MED ONE Stop: 06/13/17 09:38 Triamcinolone Acetonide (Kenalog-40) Confirm Administered Dose 40 mg .ROUTE .STK -MED ONE Stop: 06/13/17 11:07 Vancomycin HCl (Vancomycin) Confirm Administered Dose 1 gm .ROUTE .STK-MED ONE Stop: 06/13/17 09:38 Last Admin: 06/13/17 14:41 Dose: 1 gm - Exam Wound/Incisions: Dressing Dry and Intact General: Alert, Cooperative, No Acute Distress Lungs: Normal Respiratory Effort Extremities: Other (Periph pulses normal for LLE. Antonino's negative. Pt with subjective complaints of decreased ability to sense light touch from approx 3 inches inferior to knee and distally.) - Problem List Review Problem List Initiated/Reviewed/Updated: Yes - My Orders Last 24 Hours: Active Orders 24 hr Category Date Time Status Admission Status [Patient Status] [ADT] Routine ADT 06/15/17 06:40 Active Communication Order [RC] ASDIRECTED Care 06/14/17 08:54 Active RT Incentive Spirometry [RC] Q2HCA Care 06/14/17 08:19 Inactive Ready for Discharge [RC] PER UNIT ROUTINE Care 06/14/17 08:06 Inactive Ready for Discharge [RC] PER UNIT ROUTINE Care 06/15/17 08:11 Ordered Turn, Cough, Deep Breathe [RC] Q2HWA Care 06/14/17 08:19 Active Vital Signs [RC] PER UNIT ROUTINE Care 06/14/17 10:00 Active Aspirin [Ecotrin] Med 06/14/17 09:00 Active 325 mg PO BID DULoxetine [Cymbalta] Med 06/14/17 09:00 Active 60 mg PO DAILY Lisinopril [Prinivil] Med 06/14/17 09:00 Active 20 mg PO DAILY Saccharomyces Boulardii [Florastor] Med 06/14/17 09:00 Active 250 mg PO DAILY amLODIPine [Norvasc] Med 06/14/17 09:00 Active 2.5 mg PO DAILY Medication Orders Amlodipine Besylate (Norvasc) 2.5 mg PO DAILY [facility] Last Admin: 06/14/17 08:14 Dose: 2.5 mg Aspirin (Ecotrin) 325 mg PO BID [facility] Last Admin: 06/14/17 21:00 Dose: 325 mg Admin: 06/14/17 08:15 Dose: 325 mg Bisacodyl (Dulcolax) 5 mg PO DAILY PRN PRN Reason: Constipation Cyclobenzaprine HCl (Flexeril) 10 mg PO TID PRN PRN Reason: Spasms Last Admin: 06/14/17 21:00 Dose: 10 mg Docusate Sodium (Colace) 100 mg PO BID [facility] Last Admin: 06/14/17 21:00 Dose: 100 mg Admin: 06/14/17 08:16 Dose: 100 mg Admin: 06/13/17 21:31 Dose: 100 mg Duloxetine HCl (Cymbalta) 60 mg PO DAILY [facility] Last Admin: 06/14/17 08:15 Dose: 60 mg Famotidine (Pepcid) 20 mg PO Q12H [facility] Last Admin: 06/14/17 21:00 Dose: 20 mg Admin: 06/14/17 08:15 Dose: 20 mg Admin: 06/13/17 21:31 Dose: 20 mg Hydroxychloroquine Sulfate (Plaquenil) 200 mg PO BID [facility] Last Admin: 06/14/17 21:00 Dose: 200 mg Admin: 06/14/17 08:15 Dose: 200 mg Admin: 06/13/17 21:31 Dose: 200 mg Levothyroxine Sodium (Levothyroxine) 200 mcg PO ACBRK [facility] Last Admin: 06/15/17 06:33 Dose: 200 mcg Admin: 06/14/17 05:07 Dose: 200 mcg Lisinopril (Prinivil) 20 mg PO DAILY [facility] Last Admin: 06/14/17 08:16 Dose: 20 mg Magnesium Hydroxide (Milk Of Magnesia) 30 ml PO BID PRN PRN Reason: Constipation Morphine Sulfate (Morphine) 2 mg IVPUSH Q2H PRN PRN Reason: Breakthrough Pain Last Admin: 06/14/17 03:02 Dose: 2 mg Admin: 06/13/17 23:42 Dose: 2 mg Naloxone HCl (Narcan) 0.1 mg IVPUSH Q5M PRN PRN Reason: Oversedation Ondansetron HCl (Zofran) 4 mg IVPUSH Q6H PRN PRN Reason: Nausea/Vomiting Oxycodone/Acetaminophen (Percocet 325-5 Mg) 1 - 2 tab PO Q4H PRN PRN Reason: Pain Last Admin: 06/15/17 04:32 Dose: 2 tab Admin: 06/14/17 22:47 Dose: 2 tab Admin: 06/14/17 17:31 Dose: 2 tab Admin: 06/14/17 13:43 Dose: 2 tab Admin: 06/14/17 09:41 Dose: 2 tab Admin: 06/14/17 05:07 Dose: 2 tab Admin: 06/14/17 00:54 Dose: 2 tab Admin: 06/13/17 19:28 Dose: 2 tab Saccharomyces Boulardii (Florastor) 250 mg PO DAILY [facility] Last Admin: 06/14/17 10:49 Dose: 250 mg Senna (Senna) 8.6 mg PO BID PRN PRN Reason: Constipation Temazepam (Restoril) 30 mg PO BEDTIME [facility] Last Admin: 06/14/17 21:00 Dose: 30 mg Admin: 06/13/17 22:08 Dose: Not Given Tramadol HCl (Ultram) 50 mg PO Q4H PRN PRN Reason: Pain - Assessment Assessment (Free Text/Narrative):: POD#2 - s/p revision arthroplasty left knee - Plan Plan (Free Text/Narrative):: 1. Discharge to home today if cleared by Hospitalist service. 2. Again, discussed numbness at LLE. Improvements noted since yesterday. Likely secondary to tourniquet use. Suspect pt will continue to note improvements. 3. Outpatient P.T. 4. 325mg ASA BID, frequent mobility, TEDs. The pt's case was discussed with Dr. Orellana.
[2017-06-15] MEDS: amLODIPine 2.5 MG Tab PO SCH (08:47)
[2017-06-15] MEDS: Famotidine 20 MG Tab PO SCH (08:52)
[2017-06-15] MEDS: Lisinopril 20 MG Tab PO SCH (08:53)
[2017-06-15] MEDS: Aspirin 325 MG Tab.EC PO SCH (08:53)
[2017-06-15] MEDS: Hydroxychloroquine 200 MG Tab PO SCH (08:53)
[2017-06-15] MEDS: Docusate Sodium 100 MG Cap PO SCH (08:53)
[2017-06-15] MEDS: DULoxetine 30 MG Cap PO SCH (08:55)
[2017-06-15] MEDS: Saccharomyces Boulardii (Probiotic) 250 MG Cap PO SCH (08:55)
[2017-06-15 08:58] VITALS: BP 144/74
--- NOTE | 2017-06-15 09:32 | PCM.CONSN ---
- General Info Date of Service: 06/15/17 Admission Dx/Problem (Free Text): Admission Diagnosis/Problem Admission Diagnosis/Problem Pain in limb Subjective Update: Deshawn Lara is a 62 yo male patient of Dr. Orellana who is post-operative day 2 of left TKA and right knee cortisone injection. Hospital medicine was consulted for post-operative medical care. At this time he is sitting in a chair comfortably. Pain is controlled. He still has some numbness in his left leg, but he states it has improved. He denies any chest pain, shortness of breath, palpitations, nausea, or vomiting. He carries a history of: HTN, HLD, GERD, IBS , Depression, Anxiety, Hypogonadism, Insomnia, Hypothyroid, Elevated PSA. He has never smoked. No concerns from nursing. D/C home today. He is a full code. His primary care provider is Willy Thacker. Functional Status: Reports: Pain Controlled, Tolerating Diet, Ambulating, Urinating - Review of Systems General: Reports: No Symptoms HEENT: Reports: No Symptoms Pulmonary: Reports: No Symptoms Cardiovascular: Reports: No Symptoms Gastrointestinal: Reports: No Symptoms Genitourinary: Reports: No Symptoms Musculoskeletal: Reports: No Symptoms Skin: Reports: No Symptoms Neurological: Reports: Other (left leg numbness, s/p L TKA) Psychiatric: Reports: No Symptoms - Patient Data Vitals - Most Recent: Last Vital Signs Temp 97.5 F 06/15/17 08:49 Pulse 82 06/15/17 08:49 Resp 16 06/15/17 08:49 BP 144/74 H 06/15/17 08:49 Pulse Ox 95 06/15/17 08:49 Weight - Most Recent: 246 lb 9.6 oz I&O - Last 24 Hours: Intake & Output 06/14/17 06/15/17 06/15/17 22:59 06:59 14:59 Intake Total 940 300 Output Total 650 600 Balance 290 -300 Johan Results Last 24 Hours: Microbiology 06/13/17 12:02 Gram Stain - Final Knee, Left Anaerobic Culture - Preliminary NO GROWTH AFTER 1 DAY 06/13/17 12:46 Gram Stain - Final Other Anaerobic Culture - Preliminary NO GROWTH AFTER 1 DAY 06/13/17 12:03 Gram Stain - Final Knee, Left Anaerobic Culture - Preliminary NO GROWTH AFTER 1 DAY 06/13/17 12:02 Gram Stain - Final Knee, Left Anaerobic Culture - Preliminary NO GROWTH AFTER 1 DAY Med Orders - Current: Current Medications Amlodipine Besylate (Norvasc) 2.5 mg PO DAILY [facility] Last Admin: 06/15/17 08:47 Dose: 2.5 mg Aspirin (Ecotrin) 325 mg PO BID [facility] Last Admin: 06/15/17 08:53 Dose: 325 mg Bisacodyl (Dulcolax) 5 mg PO DAILY PRN PRN Reason: Constipation Cyclobenzaprine HCl (Flexeril) 10 mg PO TID PRN PRN Reason: Spasms Last Admin: 06/14/17 21:00 Dose: 10 mg Docusate Sodium (Colace) 100 mg PO BID [facility] Last Admin: 06/15/17 08:53 Dose: 100 mg Duloxetine HCl (Cymbalta) 60 mg PO DAILY [facility] Last Admin: 06/15/17 08:55 Dose: 60 mg Famotidine (Pepcid) 20 mg PO Q12H [facility] Last Admin: 06/15/17 08:52 Dose: 20 mg Hydroxychloroquine Sulfate (Plaquenil) 200 mg PO BID [facility] Last Admin: 06/15/17 08:53 Dose: 200 mg Levothyroxine Sodium (Levothyroxine) 200 mcg PO ACBRK [facility] Last Admin: 06/15/17 06:33 Dose: 200 mcg Lisinopril (Prinivil) 20 mg PO DAILY [facility] Last Admin: 06/15/17 08:53 Dose: 20 mg Magnesium Hydroxide (Milk Of Magnesia) 30 ml PO BID PRN PRN Reason: Constipation Morphine Sulfate (Morphine) 2 mg IVPUSH Q2H PRN PRN Reason: Breakthrough Pain Last Admin: 06/14/17 03:02 Dose: 2 mg Naloxone HCl (Narcan) 0.1 mg IVPUSH Q5M PRN PRN Reason: Oversedation Ondansetron HCl (Zofran) 4 mg IVPUSH Q6H PRN PRN Reason: Nausea/Vomiting Oxycodone/Acetaminophen (Percocet 325-5 Mg) 1 - 2 tab PO Q4H PRN PRN Reason: Pain Last Admin: 06/15/17 04:32 Dose: 2 tab Saccharomyces Boulardii (Florastor) 250 mg PO DAILY [facility] Last Admin: 06/15/17 08:55 Dose: 250 mg Senna (Senna) 8.6 mg PO BID PRN PRN Reason: Constipation Temazepam (Restoril) 30 mg PO BEDTIME [facility] Last Admin: 06/14/17 21:00 Dose: 30 mg Tramadol HCl (Ultram) 50 mg PO Q4H PRN PRN Reason: Pain Discontinued Medications Acetaminophen (Tylenol) 975 mg PO ASDIRECTED [facility]AD Stop: 06/13/17 12:00 Last Admin: 06/13/17 10:14 Dose: 975 mg Albuterol (Proventil Neb Soln) 2.5 mg NEB ONETIME ONE Stop: 06/13/17 18:00 Last Admin: 06/13/17 22:45 Dose: Not Given Bupivacaine HCl (Marcaine 0.25%) Confirm Administered Dose 30 ml .ROUTE .STK- MED ONE Stop: 06/13/17 09:38 Last Admin: 06/13/17 14:39 Dose: 30 ml Bupivacaine HCl (Sensorcaine-Mpf 0.25%) Confirm Administered Dose 10 ml .ROUTE .STK-MED ONE Stop: 06/13/17 11:49 Cefazolin Sodium (Ancef) Confirm Administered Dose 2 gm .ROUTE .STK-MED ONE Stop: 06/13/17 09:38 Last Admin: 06/13/17 14:35 Dose: 2 gm Cefazolin Sodium (Ancef) Confirm Administered Dose 2 gm .ROUTE .STK-MED ONE Stop: 06/13/17 10:27 Cefazolin Sodium (Ancef) Confirm Administered Dose 2 gm .ROUTE .STK-MED ONE Stop: 06/13/17 15:16 Morphine Sulfate 8 mg/Epinephrine HCl 0.3 mg/Cefuroxime Sodium 750 mg/Ketorolac Tromethamine 30 mg/Sodium Chloride 27.9 ml 0 mg .XX ONETIME ONE Stop: 06/13/17 11:21 Last Admin: 06/14/17 17:40 Dose: Not Given Diphenhydramine HCl (Benadryl) 25 mg IVPUSH Q6H PRN PRN Reason: Pruritis Stop: 06/13/17 18:00 Ephedrine Sulfate (Ephedrine In Ns) Confirm Administered Dose 25 mg .ROUTE .STK- MED ONE Stop: 06/13/17 11:41 Epinephrine HCl (Adrenalin) Confirm Administered Dose 1 mg .ROUTE .STK-MED ONE Stop: 06/13/17 13:04 Fentanyl (Sublimaze) Confirm Administered Dose 100 mcg .ROUTE .STK-MED ONE Stop: 06/13/17 10:22 Fentanyl (Sublimaze) Confirm Administered Dose 250 mcg .ROUTE .STK-MED ONE Stop: 06/13/17 10:41 Fentanyl (Sublimaze) 50 mcg IVPUSH Q5M PRN PRN Reason: Pain Stop: 06/13/17 14:00 Last Admin: 06/13/17 16:08 Dose: 50 mcg Fentanyl (Sublimaze) 50 mcg IVPUSH Q5M PRN PRN Reason: Pain Stop: 06/14/17 18:00 Fentanyl (Sublimaze) Confirm Administered Dose 100 mcg .ROUTE .STK-MED ONE Stop: 06/13/17 15:20 Glycopyrrolate (Robinul) Confirm Administered Dose 0.2 mg .ROUTE .STK-MED ONE Stop: 06/13/17 12:23 Haloperidol Lactate (Haldol) 1 mg IVPUSH ONETIME ONE Stop: 06/13/17 14:54 Last Admin: 06/14/17 08:02 Dose: Not Given Hydromorphone HCl (Dilaudid) 0.5 mg IVPUSH ONETIME PRN PRN Reason: Pain (severe 7-10) Stop: 06/13/17 13:00 Hydromorphone HCl (Dilaudid) Confirm Administered Dose 0.5 mg .ROUTE .STK-MED ONE Stop: 06/13/17 12:05 Hydromorphone HCl (Dilaudid) Confirm Administered Dose 0.5 mg .ROUTE .STK-MED ONE Stop: 06/13/17 12:53 Hydromorphone HCl (Dilaudid) Confirm Administered Dose 0.5 mg .ROUTE .STK-MED ONE Stop: 06/13/17 14:50 Hydromorphone HCl (Dilaudid) 0.5 mg IVPUSH ASDIRECTED PRN PRN Reason: Severe Pain Stop: 06/13/17 16:00 Last Admin: 06/13/17 16:10 Dose: 0.5 mg Hydromorphone HCl (Dilaudid) Confirm Administered Dose 0.5 mg .ROUTE .STK-MED ONE Stop: 06/13/17 14:57 Hydromorphone HCl (Dilaudid) Confirm Administered Dose 0.5 mg .ROUTE .STK-MED ONE Stop: 06/13/17 15:29 Hydroxyzine HCl (Atarax) 25 - 50 mg PO BEDTIME PRN PRN Reason: as directed Lactated Ringer's (Ringers, Lactated) 1,000 mls @ 125 mls/hr IV ASDIRECTED [facility] Stop: 06/13/17 23:00 Last Admin: 06/13/17 18:13 Dose: 125 mls/hr Cefazolin Sodium/Dextrose 2 gm (/ Premix) 50 mls @ 100 mls/hr IV Q8H [facility] Stop: 06/14/17 10:59 Last Admin: 06/14/17 10:45 Dose: Not Given Lactated Ringer's (Ringers, Lactated) Confirm Administered Dose 1,000 mls @ as directed .ROUTE .STK-MED ONE Stop: 06/13/17 10:28 Lactated Ringer's (Ringers, Lactated) Confirm Administered Dose 1,000 mls @ as directed .ROUTE .STK-MED ONE Stop: 06/13/17 10:28 Lidocaine HCl (Xylocaine-Mpf 1%) Confirm Administered Dose 4 mls @ as directed .ROUTE .STK-MED ONE Stop: 06/13/17 10:41 Lidocaine HCl (Xylocaine-Mpf 1%) Confirm Administered Dose 2 mls @ as directed .ROUTE .STK-MED ONE Stop: 06/13/17 15:10 Ketamine HCl (Ketalar) Confirm Administered Dose 500 mg .ROUTE .STK-MED ONE Stop: 06/13/17 12:06 Ketorolac Tromethamine (Toradol) 15 mg IVPUSH Q6H PRN PRN Reason: Pain Last Admin: 06/14/17 18:19 Dose: 15 mg Ketorolac Tromethamine (Toradol) Confirm Administered Dose 30 mg .ROUTE .STK- MED ONE Stop: 06/13/17 13:08 Lidocaine/Sodium Bicarbonate (Buffered Lidocaine 1% In Ns 8.4%) 0.25 ml IDERM ONETIME PRN PRN Reason: Prior to IV Start Stop: 06/13/17 18:00 Meperidine HCl (Demerol) 12.5 mg IVPUSH ONETIME PRN PRN Reason: shivering Stop: 06/13/17 14:00 Meperidine HCl (Demerol) 12.5 mg IVPUSH ONETIME PRN PRN Reason: Shivering Stop: 06/13/17 14:54 Methylprednisolone Sodium Succinate (Solu-Medrol) Confirm Administered Dose 125 mg .ROUTE .STK-MED ONE Stop: 06/13/17 11:39 Midazolam HCl (Versed 1 Mg/Ml) Confirm Administered Dose 2 mg .ROUTE .STK-MED ONE Stop: 06/13/17 10:22 Ondansetron HCl (Zofran) 4 mg IVPUSH ONETIME PRN PRN Reason: Nausea/Vomiting Stop: 06/13/17 18:00 Ondansetron HCl (Zofran) Confirm Administered Dose 4 mg .ROUTE .ST-MED ONE Stop: 06/13/17 11:47 Oxycodone HCl (Oxycontin) 10 mg PO ASDIRECTED [facility] Stop: 06/13/17 12:00 Last Admin: 06/13/17 10:15 Dose: 10 mg Phenylephrine HCl ([place]-Synephrine) Confirm Administered Dose 10 mg .ROUTE .ST- MED ONE Stop: 06/13/17 12:30 Pregabalin (Lyrica) 50 mg PO ASDIRECTED [facility] Stop: 06/13/17 12:00 Last Admin: 06/13/17 10:14 Dose: 50 mg Propofol (Diprivan 20 Ml) Confirm Administered Dose 200 mg .ROUTE .STK-MED ONE Stop: 06/13/17 10:22 Propofol (Diprivan 20 Ml) Confirm Administered Dose 200 mg .ROUTE .STK-MED ONE Stop: 06/13/17 13:45 Propofol (Diprivan 20 Ml) Confirm Administered Dose 200 mg .ROUTE .STK-MED ONE Stop: 06/13/17 13:45 Rocuronium [place] (Zemuron) Confirm Administered Dose 50 mg .ROUTE .STK-MED ONE Stop: 06/13/17 10:45 Ropivacaine (Naropin 0.5%) Confirm Administered Dose 30 ml .ROUTE .STK-MED ONE Stop: 06/13/17 13:04 Scopolamine (Transderm-Scop) 1.5 mg TOP ONETIME ONE Stop: 06/13/17 10:43 Last Admin: 06/13/17 11:11 Dose: 1.5 mg Sildenafil Citrate (Revatio) 20 mg PO ASDIRECTED PRN PRN Reason: as directed Sodium Chloride (Saline Flush) 10 ml FLUSH ASDIRECTED PRN PRN Reason: Keep Vein Open Stop: 06/13/17 18:00 Tranexamic Acid (Cyklokapron) Confirm Administered Dose 1,000 mg .ROUTE .STK- MED ONE Stop: 06/13/17 09:38 Last Admin: 06/13/17 14:43 Dose: 1,000 mg Triamcinolone Acetonide (Kenalog-40) Confirm Administered Dose 40 mg .ROUTE .STK -MED ONE Stop: 06/13/17 09:38 Triamcinolone Acetonide (Kenalog-40) Confirm Administered Dose 40 mg .ROUTE .STK -MED ONE Stop: 06/13/17 11:07 Vancomycin HCl (Vancomycin) Confirm Administered Dose 1 gm .ROUTE .STK-MED ONE Stop: 06/13/17 09:38 Last Admin: 06/13/17 14:41 Dose: 1 gm - Exam Quality Assessment: DVT Prophylaxis. No: Supplemental Oxygen, Urine Catheter General: Alert, Oriented HEENT: Pupils Equal, Pupils Reactive, EOMI, Mucous Membr. Moist/[place] Neck: Supple Lungs: Clear to Auscultation, Normal Respiratory Effort Cardiovascular: Regular Rate, Regular Rhythm GI/Abdominal Exam: Normal Bowel Sounds, Soft, Non-Tender, No Organomegaly, No Distention, No Abnormal Bruit, No Mass, Pelvis Stable (Male) Exam: Deferred Back Exam: Normal Inspection, Full Range of Motion Extremities: Normal Inspection, Normal Range of Motion, Non-Tender, No Pedal Edema, Normal Capillary Refill, Other (some numbness from left calf down to foot , improved) Peripheral Pulses: 2+: Posterior Tibial (L), Posterior Tibial (R), Dorsalis Pedis (L), Dorsalis Pedis (R) Skin: Warm, Dry, Intact Wound/Incisions: Healing Well, Dressing Dry and Intact Neurological: No New Focal Deficit Psy/Mental Status: Alert, Normal Affect, Normal Mood Consult PN Assessment/Plan POD#: 2 Procedures: Procedures ASSAY OF CREATININE (09/03/15) ASSAY OF LIPASE (05/29/15) ASSAY OF PSA TOTAL (01/06/16) C-REACTIVE PROTEIN (03/15/17) CCP ANTIBODY (05/26/16) COMPLETE CBC W/AUTO DIFF WBC (03/15/17) COMPREHEN METABOLIC PANEL (05/29/15) CT ABD & PELVIS W/O CONTRAST (05/29/15) CT ABDOMEN W/DYE (10/03/14) DXA BONE DENSITY AXIAL (04/12/17) EMERGENCY DEPT VISIT (05/29/15) EMERGENCY DEPT VISIT (07/29/14) FIBRIN DEGRADATION QUANT (07/29/14) HYDRATE IV INFUSION ADD-ON (05/29/15) MR-STAPH DNA AMP PROBE (01/13/16) MRI LUMBAR SPINE W/O & W/DYE (12/19/15) PRP I/GÉNESIS INIT REDUC >5 YR (01/21/16) RBC SED RATE AUTOMATED (03/15/17) REMOVAL OF SPERM CORD LESION (01/21/16) ROUTINE VENIPUNCTURE (03/15/17) THER/PROPH/DIAG INJ IV PUSH (05/29/15) TX/PRO/DX INJ NEW DRUG ADDON (05/29/15) URINALYSIS AUTO W/SCOPE (05/29/15) X-RAY EXAM L-S SPINE 2/3 VWS (12/19/15) X-RAY EXAM OF HAND (01/21/15) X-RAY EXAM OF SKULL (12/19/15) (1) Status post revision of total replacement of left knee SNOMED Code(s): 175743027, 2425351044341 Code(s): Z96.652 - PRESENCE OF LEFT ARTIFICIAL KNEE JOINT Priority: High Current Visit: Yes (2) Right knee pain SNOMED Code(s): 50992292 Code(s): M25.561 - PAIN IN RIGHT KNEE Current Visit: Yes (3) Left leg pain SNOMED Code(s): 830149136 Code(s): M79.605 - PAIN IN LEFT LEG Current Visit: No (4) HTN (hypertension) SNOMED Code(s): 39767535 Code(s): I10 - ESSENTIAL (PRIMARY) HYPERTENSION Priority: Medium Current Visit: Yes Qualifiers: Hypertension type: unspecified Qualified Code(s): I10 - Essential (primary ) hypertension (5) HLD (hyperlipidemia) SNOMED Code(s): 79238704 Code(s): E78.5 - HYPERLIPIDEMIA, UNSPECIFIED Priority: Low Current Visit : No Qualifiers: Hyperlipidemia type: unspecified Qualified Code(s): E78.5 - Hyperlipidemia , unspecified (6) Hypogonadism SNOMED Code(s): 29085179 Code(s): OOM5681 - Priority: Low Current Visit: No (7) GERD (gastroesophageal reflux disease) SNOMED Code(s): 817238771 Code(s): K21.9 - GASTRO-ESOPHAGEAL REFLUX DISEASE WITHOUT ESOPHAGITIS Priority: Medium Current Visit: No Qualifiers: Esophagitis presence: esophagitis presence not specified Qualified Code(s) : K21.9 - Gastro-esophageal reflux disease without esophagitis (8) Irritable bowel syndrome SNOMED Code(s): 88609317 Code(s): K58.9 - IRRITABLE BOWEL SYNDROME WITHOUT DIARRHEA Priority: Low Current Visit: No Qualifiers: Irritable bowel syndrome type: unspecified Qualified Code(s): K58.9 - Irritable bowel syndrome without diarrhea (9) Anxiety SNOMED Code(s): 90247094 Code(s): F41.9 - ANXIETY DISORDER, UNSPECIFIED Priority: Low Current Visit: No (10) Insomnia SNOMED Code(s): 191331506 Code(s): G47.00 - INSOMNIA, UNSPECIFIED Priority: Low Current Visit: No Qualifiers: Insomnia type: unspecified Qualified Code(s): G47.00 - Insomnia, unspecified (11) Hypothyroid SNOMED Code(s): 01157905 Code(s): E03.9 - HYPOTHYROIDISM, UNSPECIFIED Priority: Medium Current Visit: No Qualifiers: Hypothyroidism type: unspecified Qualified Code(s): E03.9 - Hypothyroidism , unspecified (12) Elevated PSA SNOMED Code(s): 235239543 Code(s): R97.20 - ELEVATED PROSTATE SPECIFIC ANTIGEN [PSA] Priority: Low Current Visit: No (13) History of total left knee replacement SNOMED Code(s): 6107871255697, 659135679, 8695780331268 Code(s): Z96.652 - PRESENCE OF LEFT ARTIFICIAL KNEE JOINT Priority: Medium Current Visit: No (14) Carpal tunnel syndrome SNOMED Code(s): 29048690 Code(s): G56.00 - CARPAL TUNNEL SYNDROME, UNSPECIFIED UPPER LIMB Priority: Low Current Visit: No Qualifiers: Laterality: unspecified laterality Qualified Code(s): G56.00 - Carpal tunnel syndrome, unspecified upper limb (15) H/O discectomy SNOMED Code(s): 343094334, 663635809 Code(s): Z98.890 - OTHER SPECIFIED POSTPROCEDURAL STATES Priority: Low Current Visit: No (16) Other specified depressive episodes SNOMED Code(s): 53822120 Code(s): F32.89 - OTHER SPECIFIED DEPRESSIVE EPISODES Priority: Low Current Visit: No Problem List Initiated/Reviewed/Updated: Yes Plan: I/P: Acute: S/P left total knee arthroplasty - post-operative day 0 -DVT prophylaxis and pain management per primary care team -PT/OT -IS/RT -Monitor oxygen saturation -Titrate oxygen as needed -Vital signs stable -Monitor labs; Hgb 12.2 Right knee pain, s/p cortisone injection -Pain management per primary care team Chronic: HTN HLD GERD IBS Depression Anxiety Hypogonadism Insomnia Hypothyroid Elevated PSA Plan: CM for discharge planning GI prophylaxis: Pepcid DVT/PE prophylaxis: BRIAN miller, SCD, ASA Home medications as indicated Other orders as listed above Routine AM labs He is a full code. His PCP is Willy Thacker. Thank you for allowing us to participate in the care of this patient!! Deshawn is doing very well this AM. His pain is controlled. He still has some numbness in his left lower leg, but he states it is improving. He has urinated. He has been working with therapies. We have no concerns from a hospitalist standpoint. He is cleared for discharge from a hospitalist standpoint.
--- NOTE | 2017-06-15 10:03 | PCM.DCSUM1 ---
Discharge Summary - Hospital Course Brief History: Deshawn is a 62 yo male who underwent revision arthroplasty of left knee with Dr. Orellana on 06-13-2017. The procedure was completed under general anesthesia. The pt had a regional block administered post-operatively. Cultures were obtained at the time of surgery and no growth was noted. The pt was noted to have significant pain post-operatively and therefore was admitted to the ICU for close monitoring of oxygen saturations. Medical management was provided by the Hospitalist service and the pt's Hospital course was remarkable for low oxygen saturations in the immediate post-operative period. The pt's Hgb on POD#1 was 12.0. The pt was then transferred to the Medical-Surgical Unit. On POD#1, 325mg ASA BID was initiated for VTE prophylaxis. SCDs and TEDs were also ordered. A Mepilex dressing was placed at the incision site at the time of surgery and remained clean and dry. The pt participated in P.T. and O.T. The pt was allowed to WBAT. The pt noted post-operative left lower leg numbness which improved during Hospitalization. On POD#2, the pt was deemed appropriate to discharge to home with his . - Discharge Data Discharge Date: 18 Discharge Disposition: Home, Self-Care 01 Condition: Good - Patient Summary/Data Consults: Consultations 06/13/ 06:48 OT Evaluation and Treatment [CONS] Routine PT Evaluation and Treatment [CONS] Routine 06/13/ 06:49 Consult to Physician [CONS] Routine - Patient Instructions Diet: Usual Diet as Tolerated Activity: Apply Ice, As Tolerated, Elevate Extremity, Full Weight Bearing Driving: Do Not Drive Showering/Bathing: May Shower Wound/Incision Care: Keep Operative Site/Wound Site Clean and Dry, Do NOT Change Dressing Notify Provider of: Fever, Increased Pain, Swelling and Redness, Drainage, Nausea and/or Vomiting Other/Special Instructions: Please get up and moving around every hour while awake. This helps to prevent blood clots. Please take 325mg aspirin twice daily - this also helps to prevent blood clots. The medication is being used for blood clot prevention and not for pain control, so please use the medication twice daily as directed. Please wear the BRIAN hose during the day and you may remove them at night. Please schedule for P.T. Complete the P.T. exercises and stretches that were instructed in the Hospital. Please use the pain medication and muscle relaxant as needed. The medication may cause drowsiness and/or constipation. You could use a stool softener like docusate sodium or Colace 100mg twice daily and/or a laxative like Miralax daily for constipation. Contact your primary care provider for further instructions if you are constipated. Use the incentive spirometer often. Please place ice to the knee often. Please elevate the limb to decrease swelling. Keep the Mepilex dressing in place until follow-up. Please call [phone] with questions or concerns. - Discharge Plan Prescriptions/Med Rec: Acetaminophen/oxyCODONE [Percocet 325-5 MG] 1 - 2 tab PO Q6H PRN #60 tablet PRN Reason: Pain Aspirin [Ecotrin] 325 mg PO BID #84 tab.ec Cyclobenzaprine [Flexeril] 10 mg PO TID PRN #40 tablet PRN Reason: Spasms Home Medications: Home Meds Levothyroxine Sodium [Synthroid] 200 mcg PO DAILY 07/29/14 [History] Lisinopril 20 mg PO DAILY 07/29/14 [History] Temazepam 30 mg PO BEDTIME 07/29/14 [History] DULoxetine [Cymbalta] 60 mg PO DAILY 06/12/17 [History] Hydroxychloroquine Sulfate [Plaquenil] 200 mg PO BID 06/12/17 [History] Sildenafil Citrate [Sildenafil] 20 mg PO ASDIRECTED PRN 06/12/17 [History] amLODIPine [Norvasc] 2.5 mg PO BEDTIME 06/12/17 [History] traMADol [Ultram] 50 mg PO Q4H PRN 06/13/17 [History] Acetaminophen/oxyCODONE [Percocet 325-5 MG] 1 - 2 tab PO Q6H PRN #60 tablet [Rx] Aspirin [Ecotrin] 325 mg PO BID #84 tab.ec 06/14/17 [Rx] Bisacodyl [Dulcolax] 5 mg PO DAILY PRN tablet 06/14/17 [Rx] Cyclobenzaprine [Flexeril] 10 mg PO TID PRN #40 tablet 06/14/17 [Rx] Docusate Sodium [Colace] 100 mg PO BID cap 06/14/17 [Rx] Famotidine [Pepcid] 20 mg PO Q12H tablet 06/14/17 [Rx] Lactobacillus Acidophilus [Probiotic] 1 cap PO DAILY 06/14/17 [Rx] Magnesium Hydroxide [Milk of Magnesia] 30 ml PO BID PRN cup 06/14/17 [Rx] Sennosides [Senna] 8.6 mg PO BID PRN tablet 06/14/17 [Rx] Referrals: Ximena Diggs PA-C [Physician Sheet Sorter] - 06/21/17 9:00 am (Follow up scheduled for 06/21 at 9am AND 06/28 at 9am) - Patient Data Vitals - Most Recent: Last Vital Signs Temp 97.5 F 06/15/17 08:49 Pulse 82 06/15/17 08:49 Resp 16 06/15/17 08:49 BP 144/74 H 06/15/17 08:49 Pulse Ox 95 06/15/17 08:49 Weight - Most Recent: 246 lb 9.6 oz I&O - Last 24 hours: Intake & Output 06/14/17 06/15/17 06/15/17 22:59 06:59 14:59 Intake Total 940 300 Output Total 650 600 Balance 290 -300 VIVIANA Results - Last 24 hrs: Microbiology 06/13/17 12:02 Gram Stain - Final Knee, Left Anaerobic Culture - Preliminary NO GROWTH AFTER 1 DAY 06/13/17 12:46 Gram Stain - Final Other Anaerobic Culture - Preliminary NO GROWTH AFTER 1 DAY 06/13/17 12:03 Gram Stain - Final Knee, Left Anaerobic Culture - Preliminary NO GROWTH AFTER 1 DAY 06/13/17 12:02 Gram Stain - Final Knee, Left Anaerobic Culture - Preliminary NO GROWTH AFTER 1 DAY Med Orders - Current: Current Medications Amlodipine Besylate (Norvasc) 2.5 mg PO DAILY [facility] Last Admin: 06/15/17 08:47 Dose: 2.5 mg Aspirin (Ecotrin) 325 mg PO BID [facility] Last Admin: 06/15/17 08:53 Dose: 325 mg Bisacodyl (Dulcolax) 5 mg PO DAILY PRN PRN Reason: Constipation Cyclobenzaprine HCl (Flexeril) 10 mg PO TID PRN PRN Reason: Spasms Last Admin: 06/14/17 21:00 Dose: 10 mg Docusate Sodium (Colace) 100 mg PO BID [facility] Last Admin: 06/15/17 08:53 Dose: 100 mg Duloxetine HCl (Cymbalta) 60 mg PO DAILY [facility] Last Admin: 06/15/17 08:55 Dose: 60 mg Famotidine (Pepcid) 20 mg PO Q12H [facility] Last Admin: 06/15/17 08:52 Dose: 20 mg Hydroxychloroquine Sulfate (Plaquenil) 200 mg PO BID [facility] Last Admin: 06/15/17 08:53 Dose: 200 mg Levothyroxine Sodium (Levothyroxine) 200 mcg PO ACBRK [facility] Last Admin: 06/15/17 06:33 Dose: 200 mcg Lisinopril (Prinivil) 20 mg PO DAILY [facility] Last Admin: 06/15/17 08:53 Dose: 20 mg Magnesium Hydroxide (Milk Of Magnesia) 30 ml PO BID PRN PRN Reason: Constipation Morphine Sulfate (Morphine) 2 mg IVPUSH Q2H PRN PRN Reason: Breakthrough Pain Last Admin: 06/14/17 03:02 Dose: 2 mg Naloxone HCl (Narcan) 0.1 mg IVPUSH Q5M PRN PRN Reason: Oversedation Ondansetron HCl (Zofran) 4 mg IVPUSH Q6H PRN PRN Reason: Nausea/Vomiting Oxycodone/Acetaminophen (Percocet 325-5 Mg) 1 - 2 tab PO Q4H PRN PRN Reason: Pain Last Admin: 06/15/17 09:46 Dose: 2 tab Saccharomyces Boulardii (Florastor) 250 mg PO DAILY [facility] Last Admin: 06/15/17 08:55 Dose: 250 mg Senna (Senna) 8.6 mg PO BID PRN PRN Reason: Constipation Temazepam (Restoril) 30 mg PO BEDTIME [facility] Last Admin: 06/14/17 21:00 Dose: 30 mg Tramadol HCl (Ultram) 50 mg PO Q4H PRN PRN Reason: Pain Discontinued Medications Acetaminophen (Tylenol) 975 mg PO ASDIRECTED [facility] Stop: 06/13/17 12:00 Last Admin: 06/13/17 10:14 Dose: 975 mg Albuterol (Proventil Neb Soln) 2.5 mg NEB ONETIME ONE Stop: 06/13/17 18:00 Last Admin: 06/13/17 22:45 Dose: Not Given Bupivacaine HCl (Marcaine 0.25%) Confirm Administered Dose 30 ml .ROUTE .STK- MED ONE Stop: 06/13/17 09:38 Last Admin: 06/13/17 14:39 Dose: 30 ml Bupivacaine HCl (Sensorcaine-Mpf 0.25%) Confirm Administered Dose 10 ml .ROUTE .STK-MED ONE Stop: 06/13/17 11:49 Cefazolin Sodium (Ancef) Confirm Administered Dose 2 gm .ROUTE .STK-MED ONE Stop: 06/13/17 09:38 Last Admin: 06/13/17 14:35 Dose: 2 gm Cefazolin Sodium (Ancef) Confirm Administered Dose 2 gm .ROUTE .STK-MED ONE Stop: 06/13/17 10:27 Cefazolin Sodium (Ancef) Confirm Administered Dose 2 gm .ROUTE .STK-MED ONE Stop: 06/13/17 15:16 Morphine Sulfate 8 mg/Epinephrine HCl 0.3 mg/Cefuroxime Sodium 750 mg/Ketorolac Tromethamine 30 mg/Sodium Chloride 27.9 ml 0 mg .XX ONETIME ONE Stop: 06/13/17 11:21 Last Admin: 06/14/17 17:40 Dose: Not Given Diphenhydramine HCl (Benadryl) 25 mg IVPUSH Q6H PRN PRN Reason: Pruritis Stop: 06/13/17 18:00 Ephedrine Sulfate (Ephedrine In Ns) Confirm Administered Dose 25 mg .ROUTE .STK- MED ONE Stop: 06/13/17 11:41 Epinephrine HCl (Adrenalin) Confirm Administered Dose 1 mg .ROUTE .STK-MED ONE Stop: 06/13/17 13:04 Fentanyl (Sublimaze) Confirm Administered Dose 100 mcg .ROUTE .STK-MED ONE Stop: 06/13/17 10:22 Fentanyl (Sublimaze) Confirm Administered Dose 250 mcg .ROUTE .STK-MED ONE Stop: 06/13/17 10:41 Fentanyl (Sublimaze) 50 mcg IVPUSH Q5M PRN PRN Reason: Pain Stop: 06/13/17 14:00 Last Admin: 06/13/17 16:08 Dose: 50 mcg Fentanyl (Sublimaze) 50 mcg IVPUSH Q5M PRN PRN Reason: Pain Stop: 06/14/17 18:00 Fentanyl (Sublimaze) Confirm Administered Dose 100 mcg .ROUTE .STK-MED ONE Stop: 06/13/17 15:20 Glycopyrrolate (Robinul) Confirm Administered Dose 0.2 mg .ROUTE .STK-MED ONE Stop: 06/13/17 12:23 Haloperidol Lactate (Haldol) 1 mg IVPUSH ONETIME ONE Stop: 06/13/17 14:54 Last Admin: 06/14/17 08:02 Dose: Not Given Hydromorphone HCl (Dilaudid) 0.5 mg IVPUSH ONETIME PRN PRN Reason: Pain (severe 7-10) Stop: 06/13/17 13:00 Hydromorphone HCl (Dilaudid) Confirm Administered Dose 0.5 mg .ROUTE .STK-MED ONE Stop: 06/13/17 12:05 Hydromorphone HCl (Dilaudid) Confirm Administered Dose 0.5 mg .ROUTE .STK-MED ONE Stop: 06/13/17 12:53 Hydromorphone HCl (Dilaudid) Confirm Administered Dose 0.5 mg .ROUTE .STK-MED ONE Stop: 06/13/17 14:50 Hydromorphone HCl (Dilaudid) 0.5 mg IVPUSH ASDIRECTED PRN PRN Reason: Severe Pain Stop: 06/13/17 16:00 Last Admin: 06/13/17 16:10 Dose: 0.5 mg Hydromorphone HCl (Dilaudid) Confirm Administered Dose 0.5 mg .ROUTE .STK-MED ONE Stop: 06/13/17 14:57 Hydromorphone HCl (Dilaudid) Confirm Administered Dose 0.5 mg .ROUTE .STK-MED ONE Stop: 06/13/17 15:29 Hydroxyzine HCl (Atarax) 25 - 50 mg PO BEDTIME PRN PRN Reason: as directed Lactated Ringer's (Ringers, Lactated) 1,000 mls @ 125 mls/hr IV ASDIRECTED BRAD Stop: 06/13/17 23:00 Last Admin: 06/13/17 18:13 Dose: 125 mls/hr Cefazolin Sodium/Dextrose 2 gm (/ Premix) 50 mls @ 100 mls/hr IV Q8H [facility] Stop: 06/14/17 10:59 Last Admin: 06/14/17 10:45 Dose: Not Given Lactated Ringer's (Ringers, Lactated) Confirm Administered Dose 1,000 mls @ as directed .ROUTE .STK-MED ONE Stop: 06/13/17 10:28 Lactated Ringer's (Ringers, Lactated) Confirm Administered Dose 1,000 mls @ as directed .ROUTE .STK-MED ONE Stop: 06/13/17 10:28 Lidocaine HCl (Xylocaine-Mpf 1%) Confirm Administered Dose 4 mls @ as directed .ROUTE .STK-MED ONE Stop: 06/13/17 10:41 Lidocaine HCl (Xylocaine-Mpf 1%) Confirm Administered Dose 2 mls @ as directed .ROUTE .STK-MED ONE Stop: 06/13/17 15:10 Ketamine HCl (Ketalar) Confirm Administered Dose 500 mg .ROUTE .STK-MED ONE Stop: 06/13/17 12:06 Ketorolac Tromethamine (Toradol) 15 mg IVPUSH Q6H PRN PRN Reason: Pain Last Admin: 06/14/17 18:19 Dose: 15 mg Ketorolac Tromethamine (Toradol) Confirm Administered Dose 30 mg .ROUTE .STK- MED ONE Stop: 06/13/17 13:08 Lidocaine/Sodium Bicarbonate (Buffered Lidocaine 1% In Ns 8.4%) 0.25 ml IDERM ONETIME PRN PRN Reason: Prior to IV Start Stop: 06/13/17 18:00 Meperidine HCl (Demerol) 12.5 mg IVPUSH ONETIME PRN PRN Reason: shivering Stop: 06/13/17 14:00 Meperidine HCl (Demerol) 12.5 mg IVPUSH ONETIME PRN PRN Reason: Shivering Stop: 06/13/17 14:54 Methylprednisolone Sodium Succinate (Solu-Medrol) Confirm Administered Dose 125 mg .ROUTE .STK-MED ONE Stop: 06/13/17 11:39 Midazolam HCl (Versed 1 Mg/Ml) Confirm Administered Dose 2 mg .ROUTE .STK-MED ONE Stop: 06/13/17 10:22 Ondansetron HCl (Zofran) 4 mg IVPUSH ONETIME PRN PRN Reason: Nausea/Vomiting Stop: 06/13/17 18:00 Ondansetron HCl (Zofran) Confirm Administered Dose 4 mg .ROUTE .STK-MED ONE Stop: 06/13/17 11:47 Oxycodone HCl (Oxycontin) 10 mg PO ASDIRECTED [facility] Stop: 06/13/17 12:00 Last Admin: 06/13/17 10:15 Dose: 10 mg Phenylephrine HCl ([place]-Synephrine) Confirm Administered Dose 10 mg .ROUTE .STK- MED ONE Stop: 06/13/17 12:30 Pregabalin (Lyrica) 50 mg PO ASDIRECTED [facility] Stop: 06/13/17 12:00 Last Admin: 06/13/17 10:14 Dose: 50 mg Propofol (Diprivan 20 Ml) Confirm Administered Dose 200 mg .ROUTE .STK-MED ONE Stop: 06/13/17 10:22 Propofol (Diprivan 20 Ml) Confirm Administered Dose 200 mg .ROUTE .STK-MED ONE Stop: 06/13/17 13:45 Propofol (Diprivan 20 Ml) Confirm Administered Dose 200 mg .ROUTE .STK-MED ONE Stop: 06/13/17 13:45 Rocuronium [place] (Zemuron) Confirm Administered Dose 50 mg .ROUTE .STK-MED ONE Stop: 06/13/17 10:45 Ropivacaine (Naropin 0.5%) Confirm Administered Dose 30 ml .ROUTE .STK-MED ONE Stop: 06/13/17 13:04 Scopolamine (Transderm-Scop) 1.5 mg TOP ONETIME ONE Stop: 06/13/17 10:43 Last Admin: 06/13/17 11:11 Dose: 1.5 mg Sildenafil Citrate (Revatio) 20 mg PO ASDIRECTED PRN PRN Reason: as directed Sodium Chloride (Saline Flush) 10 ml FLUSH ASDIRECTED PRN PRN Reason: Keep Vein Open Stop: 06/13/17 18:00 Tranexamic Acid (Cyklokapron) Confirm Administered Dose 1,000 mg .ROUTE .STK- MED ONE Stop: 06/13/17 09:38 Last Admin: 06/13/17 14:43 Dose: 1,000 mg Triamcinolone Acetonide (Kenalog-40) Confirm Administered Dose 40 mg .ROUTE .STK -MED ONE Stop: 06/13/17 09:38 Triamcinolone Acetonide (Kenalog-40) Confirm Administered Dose 40 mg .ROUTE .STK -MED ONE Stop: 06/13/17 11:07 Vancomycin HCl (Vancomycin) Confirm Administered Dose 1 gm .ROUTE .STK-MED ONE Stop: 06/13/17 09:38 Last Admin: 06/13/17 14:41 Dose: 1 gm
--- NOTE | 2017-06-22 07:21 | PCM.OPNOTE ---
- General Post-Op/Procedure Note Date of Surgery/Procedure: 06/13/17 Operative Procedure(s): revision left total knee arthroplasty all three components with right knee corticosteroid injection Pre Op Diagnosis: painful left total knee arthroplasty and right knee osteoarthritis Post-Op Diagnosis: Same Anesthesia Technique: Local, MAC, Spinal Primary Surgeon: Aureliano Orellana Anesthesia Provider: Allie Bledsoe Chemical Detection Expert: Ximena Diggs Chemical Detection Expert: Henrietta Davis EBL in mLs: 200 Complications: None Condition: Good
--- NOTE | 2017-06-22 10:29 | OR ---
DATE OF OPERATION: 06/13/2017 SURGEON: Aureliano Orellana MD OPERATION PERFORMED: Revision of left total knee arthroplasty with right knee corticosteroid injection. PREOPERATIVE DIAGNOSIS: Painful left total knee arthroplasty and right knee osteoarthrosis. POSTOPERATIVE DIAGNOSIS: Painful left total knee arthroplasty and right knee osteoarthrosis. ANESTHESIA: Local MAC with spinal. ANESTHESIA PROVIDER: Xiomara Ballard. ASSISTANTS: Ximena Diggs PA-C, and Henrietta Davis LPN. ESTIMATED BLOOD LOSS: 200 mL. COMPLICATIONS: None. CONDITION: Stable DESCRIPTION OF PROCEDURE: The patient was identified in the preoperative holding area, where proper site was marked and identified by the surgeon. The patient was taken back to the operating room, where after adequate anesthesia, the patient's left lower extremity had a nonsterile tourniquet applied and was then sterilely prepped and draped in the usual sterile fashion. OR-wide time-out was performed. The patient received 2 grams of IV Ancef. At this time, the left lower extremity was exsanguinated. Tourniquet was insufflated to 250 mmHg. The previous incision was utilized, and this was taken down to the medial parapatellar arthrotomy, and the medial parapatellar arthrotomy was created. There was noted to be significant scar tissue, especially in the retropatellar region and all the way laterally at this time, and this was then resected. Attention was turned to the patella. The patella button was noted to have significant wear. It was noted to be a rotating platform at this time, and this was left in place so that we would not compact the bone with the retractors throughout the case. At this time, significant scar tissue was resected out and medial side, the deep fibers of the MCL were raised. Attention was turned to the femoral component, at this time, with the reciprocating saw and flexible osteotomes. The femoral component was removed. At this time, there was noted to be no significant bone loss, other than a minor amount throughout with resection of the femoral component. At this time, attention was turned to the tibia. Again, with a flexible osteotome and reciprocating saw, the tibial component was resected out after the polyethylene had been removed. There was noted to be a minor amount of loss of posterolateral bone when this was taken out. At this time, attention was turned to the tibia. Intramedullary hand reamers were then placed down the tibia and then the tibial cutting guide for 0 degree was placed, 5 mm was resected off. There was noted to be a significant amount of posterior slope that was resected out of the previous cut. Once this was resected out, attention was turned to the femur. The trial cutting block for the femur was then placed and 5 mm resected off the distal femur and then the posteromedial side had 5 mm resected and the 0 cutting block was used for the lateral side. At this time, attention was turned to reaming of the femoral canal for press-fit component. This was reamed all the way up to a 26 for a 24-mm press-fit stem, 100 mm. At this time, the cone guide was placed in the tibia and a centralized cone was decided to be used in the tibia secondary to this being the third time this was done and the significant resection on the tibia. So, at this time, we decided to use a centralized cone to help with support in the tibial side. The reaming was done down to a size-C cone for the tibia. [place] components with a size-C cone was then utilized in the tibia with a size-5 baseplate and a size-6 femur was utilized. The trial components were then placed after the box cut was completed. The patient's knee was brought through full flexion and extension with a size 13, at this time, a size 16 was then placed and was brought through a full range of motion. The patella was then tracking centrally. At this time, we decided to resect the old patella out as it showed some wear with a rotating platform. At this time, with the use of flexible osteotomes and a reciprocating saw, we were able to resect it out. It was brought down to 13 mm. I did offset the PEG holes from the previous PEG holes, so that it had good bony purchase and the drill holes were then drilled for this. The trial button was then placed, and the patient's knee again was brought throughout a range of motion and was found to be stable, and the patella was tracking centrally. There were no signs of patella baja or mayi noted. At this time, the trial components were removed. All bony surfaces were irrigated with pulse lavage irrigation with Ancef and cement was mixed on the back table. The size-5 tibial component then had the size 12 x 50 mm stem placed, and the size-6 PS femur had the 24 x 100 mm press- fit stem placed. At this time, once the cement was ready, the size-C cone was then placed in the tibia and cement was placed in the cone and on the bony surfaces and on the tibial component and the size-5 tibial component with the stem was then impacted into place. It was found to have good seating. The size 6 femur then had cement placed on everything, but the stem, and then it was impacted into place and was found to have adequate positioning. The 38 x 10 mm patella was then also cemented into place. 1 L dilute Betadine solution was then irrigated through the knee along with 3 L of pulse lavage irrigation with Ancef. Topical tranexamic acid as well as vancomycin powder were placed. #2 barbed sutures were used for closure of the medial parapatellar arthrotomy. 2-0 Vicryl was used subcutaneously and a running Monocryl as well as Prineo was used for the skin. The patient was placed in a sterile soft dressing and sent to the PACU in a stable condition after a right knee intra-articular steroid injection was done using 2 mL of 40 mg Kenalog and 4 mL of 0.25% Marcaine, and the patient tolerated this as well. CARLITOS /[id number]
== END 2017-06-15 10:10 | disposition home or self-care (01) | DRG 302 ==
LOC: JD.SDS 08:40 → JD.MS 08:42 → JD.SDS 18:14 → JD.MS 18:14 → JD.ICU 19:01 → JD.MS 06-14 10:16
PROVIDERS: ADMIT Orthopaedic Surgery; ATTEND Orthopaedic Surgery
PROC: 0SRD0J9 Replacement of Left Knee Joint with Synthetic Substitute, Cemented, Open Approach (ICD-10-PCS; principal; 2017-06-13)
PROC: 0SPD0JZ Removal of Synthetic Substitute from Left Knee Joint, Open Approach (ICD-10-PCS; 2017-06-13)
PROC: 3E0T3BZ Introduction of Anesthetic Agent into Peripheral Nerves and Plexi, Percutaneous Approach (ICD-10-PCS; 2017-06-13)
PROC: 3E0U33Z Introduction of Anti-inflammatory into Joints, Percutaneous Approach (ICD-10-PCS; 2017-06-13)
DX: T84.063A Wear of articular bearing surface of internal prosthetic left knee joint, initial encounter (principal); M17.11 Unilateral primary osteoarthritis, right knee; I10 Essential (primary) hypertension; E78.5 Hyperlipidemia, unspecified; K21.9 Gastro-esophageal reflux disease without esophagitis; F32.9 Major depressive disorder, single episode, unspecified; F41.9 Anxiety disorder, unspecified; E03.9 Hypothyroidism, unspecified; R97.20 Elevated prostate specific antigen [PSA]; G47.30 Sleep apnea, unspecified; M35.3 Polymyalgia rheumatica; F51.04 Psychophysiologic insomnia; R06.03 Acute respiratory distress; T88.59XA Other complications of anesthesia, initial encounter; Y83.8 Other surgical procedures as the cause of abnormal reaction of the patient, or of later complication, without mention of misadventure at the time of the procedure; D18.09 Hemangioma of other sites; Z88.8 Allergy status to other drugs, medicaments and biological substances; Z87.442 Personal history of urinary calculi; Z90.49 Acquired absence of other specified parts of digestive tract; Z79.899 Other long term (current) drug therapy; Z79.82 Long term (current) use of aspirin; Z79.52 Long term (current) use of systemic steroids; K58.0 Irritable bowel syndrome with diarrhea; M54.5 Low back pain
CPT/HCPCS: 36415; 73560-26-LT; 73560-LT; 76000; 76000-26; 80053; 85027; 87075; 87205; 87641; 93005; 97110-GP; 97116-GP; 97161-GP; 97166-GO; 97530-GO; 97530-GP; 97535-GO; A9270-GY; C1713; C1776; J0171; J0690; J0697; J1170; J1885; J2250; J2270; J2370; J2405; J2704; J2795; J2930; J3010; J3301; J3370; J3490; J7050; J7120

== ENCOUNTER 2018-12-20 09:13 | Emergency (ER) | payer BC ==
[2018-12-20] MEDS ORDERED: Sodium Chloride 0.9% 10 ML Syringe FLUSH PRN (09:51)
[2018-12-20] MEDS ORDERED: Sodium Chloride 0.9% 1,000 ML IV SCH (10:00)
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
[2018-12-20] MEDS ORDERED: Iopamidol 612 MG/ML 100 ML Bottle IVPUSH ONE (11:05)
[2018-12-20] MEDS ORDERED: Sodium Chloride 0.9% 10 ML Syringe FLUSH ONE (11:05)
[2018-12-20] MEDS ORDERED: diphenhydrAMINE 50 MG/ML SDV IVPUSH ONE (11:08)
[2018-12-20] MEDS ORDERED: HYDROmorphone 1 MG/ML Syringe IVPUSH ONE (11:08)
[2018-12-20] MEDS ORDERED: methylPREDNISolone Sodium Succinate 125 MG/2 ML SDV IVPUSH ONE (11:08)
[2018-12-20] MEDS ORDERED: Sodium Chloride 0.9% 100 ML IV SCH (11:15)
[2018-12-20 14:35] VITALS: BP 155/99; PULSE 90
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
--- NOTE | 2018-12-21 17:28 | CR ---
Chest: Two views of the chest were obtained. Comparison: No prior chest x-ray, previous chest CT of 12/20/18. Findings: Heart size and mediastinum are within normal limits. Lungs are clear. Bony structures appear within normal limits for the patient's age. Metallic densities are seen projected within the liver within the right upper abdomen. Impression: 1. Findings as noted above. 2. Nothing acute is appreciated. Diagnostic code #2
== END 2018-12-20 13:30 | disposition home or self-care (01) ==
LOC: JD.ED 09:13
DX: R06.02 Shortness of breath (principal); I10 Essential (primary) hypertension; F32.9 Major depressive disorder, single episode, unspecified; N52.9 Male erectile dysfunction, unspecified; E03.9 Hypothyroidism, unspecified; Z91.09 Other allergy status, other than to drugs and biological substances; Z79.899 Other long term (current) drug therapy; Z79.890 Hormone replacement therapy
CPT/HCPCS: 36415; 71046; 71275; 80053; 83735; 84443; 84484; 85025; 85379; 86140; 93005; 96361; 96374; 96375; 99285; J1170; J1200; J2930; J7030; J7040; Q9967

== ENCOUNTER 2019-07-16 08:44 | Day surgery (SDC) | payer BC ==
[~2019-07-16 08:44] MED LIST changes: -Acetaminophen 325 MG Tab PO SCH; +Lactated Ringers 1,000 ML IV SCH; +Lidocaine 1% 4 ML ONE; +Midazolam 1 MG/ML 2 ML SDV ONE; +Ondansetron 4 MG/2 ML SDV ONE; -Pregabalin 25 MG Cap PO SCH; +Propofol 200 MG/20 ML SDV ONE; +Rocuronium 50 MG/5 ML Vial ONE; +fentaNYL 100 MCG/2 ML SDV ONE; -oxyCODONE ER 10 MG TAB.ER PO SCH
[2019-07-16] MEDS ORDERED: EPINEPHrine 1 MG/ML SDV ONE (08:50)
[2019-07-16] MEDS ORDERED: Ropivacaine 0.5% 5 MG/ML 30 ML SDV ONE (08:51)
--- NOTE | 2019-07-16 09:06 | PCM.PREANE ---
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), Thyroid Problems ( hypothyroid) - Physical Assessment NPO Status Date: 07/15/19 NPO Status Time: 00:00 Height: 1.83 m Weight: 107.4 kg ASA Class: 2 Mental Status: Alert & Oriented x3 Airway Class: Mallampati = 1 Dentition: Reports: Normal Dentition, Implants (front top and bottom) Thyro-Mental Finger Breadths: 3 Mouth Opening Finger Breadths: 3 ROM/Head Extension: Full Lungs: Clear to Auscultation, Normal Respiratory Effort Cardiovascular: Regular Rate, Regular Rhythm - Lab Values: Laboratory Last Values SARS Virus RNA (PCR) Negative (NEGATIVE) 07/12/19 10:40 MRSA (PCR) Negative 07/11/19 14:03 - Imaging/EKG Impressions: EKG SR with BBB on chart - Allergies Allergies/Adverse Reactions: Allergies Allergy/AdvReac Type Severity Reaction Status Date / Time iodine Allergy Rash Verified 07/15/19 13:00 - Blood Blood Available: No Product(s) Available: None - Anesthesia Plan Pre-Op Medication Ordered: None - Acknowledgements Anesthesia Type Planned: General Anesthesia, Regional Block (right interscalene block for post-0op pain control) Pt an Appropriate Candidate for the Planned Anesthesia: Yes Alternatives and Risks of Anesthesia Discussed w Pt/Guardian: Yes Pt/Guardian Understands and Agrees with Anesthesia Plan: Yes PreAnesthesia Questionnaire HEENT History: Reports: Other (See Below) Other HEENT History: post nasal drip Cardiovascular History: Reports: High Cholesterol, Hypertension Other Cardiovascular History: 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 Respiratory History: Reports: Bronchitis, Recurrent, Sleep Apnea, SOB, Other ( See Below) Other Respiratory History: undiagnosed sleep apnea Gastrointestinal History: Reports: GERD, Irritable Bowel Syndrome, Other (See Below) Other Gastrointestinal History: right inguinal hernia, hepatic hemangioma, RUQ pain, IBS, liver hemangioma, Right inguinal hernia Genitourinary History: Reports: Other (See Below) Other Genitourinary History: renal calculus, hypogonadism, erectile dysfunction , elevated PSA 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 Musculoskeletal History: Reports: Arthritis, Other (See Below) Other Musculoskeletal History: carpal tunnel syndrome, wrist pain, low back pain , left shoulder impingement, left knee injury, poylmyaglia, rheumatica, arthralgia, arm weakness Neurological History: Reports: None Psychiatric History: Reports: Depression, Other (See Below) Other Psychiatric History: chronic insomnia, fatigue Endocrine/Metabolic History: Reports: Hypothyroidism Hematologic History: Reports: None Immunologic History: Reports: None Oncologic (Cancer) History: Reports: None Dermatologic History: Reports: Other (See Below) Other Dermatologic History: keratosis - Infectious Disease History Infectious Disease History: Reports: None - Past Surgical History Head Surgeries/Procedures: Reports: None HEENT Surgical History: Reports: Oral Surgery Cardiovascular Surgical History: Reports: None Respiratory Surgical History: Reports: None GI Surgical History: Reports: Cholecystectomy, Colonoscopy, EGD, Hernia, Inguinal Other GI Surgeries/Procedures: partial liver lobectomy Female Surgical History: Reports: None Male Surgical History: Reports: None Endocrine Surgical History: Reports: None Neurological Surgical History: Reports: Discectomy, Other (See Below) Other Neurological Surgeries/Procedures: back discectomy x6 Musculoskeletal Surgical History: Reports: Carpal Tunnel, Knee Replacement, Shoulder Surgery Other Musculoskeletal Surgeries/Procedures:: back surgery Oncologic Surgical History: Reports: None Dermatological Surgical History: Reports: None - SUBSTANCE USE Smoking Status *Q: Never Smoker Tobacco Use Within Last Twelve Months: No Second Hand Smoke Exposure: No Days Per Week of Alcohol Use: 0 Number of Drinks Per Day: 0 Total Drinks Per Week: 0 Recreational Drug Use History: No - HOME MEDS Home Medications: Home Meds Temazepam 30 mg PO BEDTIME 07/29/14 [History] Sildenafil Citrate 60 mg PO ASDIRECTED PRN 06/12/17 [History] Escitalopram Oxalate 20 mg PO DAILY 02/03/18 [History] Budesonide [Rhinocort Allergy] 1 dose NASBOTH BID PRN 07/15/19 [History] Celecoxib 200 mg PO DAILY 07/15/19 [History] Esomeprazole Magnesium [Nexium] 20 mg PO DAILY 07/15/19 [History] Levothyroxine Sodium [Synthroid] 175 mcg PO DAILY 07/15/19 [History] Lidocaine 4% [Aspercreme 4%] 1 dose TOP BID PRN 07/15/19 [History] Multivitamin 1 tab PO DAILY 07/15/19 [History] Testosterone [Androgel] 2 pump TOP Q72H 07/15/19 [History] Acetaminophen/HYDROcodone [[place] 325-5 MG] 1 - 2 tab PO Q6H PRN #40 tablet 07/15 [Rx] - CURRENT (IN HOUSE) MEDS Current Meds: Current Medications Epinephrine HCl (Adrenalin) 3 mg .XX ONETIME ONE Stop: 07/16/19 10:31 Lactated Ringer's (Ringers, Lactated) 1,000 mls @ 125 mls/hr IV ASDIRECTED BRAD Stop: 07/16/19 23:00 Lidocaine/Sodium Bicarbonate (Buffered Lidocaine 1% In Ns 8.4%) 0.25 ml IDERM ONETIME PRN PRN Reason: Prior to IV Start Stop: 07/16/19 18:00 Sodium Chloride (Saline Flush) 10 ml FLUSH ASDIRECTED PRN PRN Reason: Keep Vein Open Stop: 07/16/19 18:00 Discontinued Medications Epinephrine HCl (Adrenalin) Confirm Administered Dose 1 mg .ROUTE .STK-MED ONE Stop: 07/16/19 08:51 Fentanyl (Sublimaze) Confirm Administered Dose 100 mcg .ROUTE .STK-MED ONE Stop: 07/16/19 07:47 Lidocaine HCl (Xylocaine-Mpf 1%) Confirm Administered Dose 4 mls @ as directed .ROUTE .STK-MED ONE Stop: 07/16/19 07:48 Midazolam HCl (Versed 1 Mg/Ml) Confirm Administered Dose 2 mg .ROUTE .STK-MED ONE Stop: 07/16/19 07:47 Ondansetron HCl (Zofran) Confirm Administered Dose 4 mg .ROUTE .STK-MED ONE Stop: 07/16/19 07:46 Propofol (Diprivan 20 Ml) Confirm Administered Dose 200 mg .ROUTE .STK-MED ONE Stop: 07/16/19 07:47 Rocuronium [place] (Zemuron) Confirm Administered Dose 50 mg .ROUTE .STK-MED ONE Stop: 07/16/19 07:46 Ropivacaine (Naropin 0.5%) Confirm Administered Dose 30 ml .ROUTE .STK-MED ONE Stop: 07/16/19 08:52
[2019-07-16] MEDS ORDERED: Scopolamine 1.5 MG Transdermal Patch TOP ONE (09:30)
[2019-07-16] MEDS ORDERED: ceFAZolin 1 GM Vial ONE (09:56)
[2019-07-16] MEDS ORDERED: EPINEPHrine 1 MG/1 ML Amp ONE (10:30)
[2019-07-16] MEDS ORDERED: Lidocaine 1% 2 ML ONE (10:37)
[2019-07-16] MEDS ORDERED: Dexamethasone 4 MG/ML 5 ML MDV ONE (11:27)
[2019-07-16] MEDS ORDERED: ePHEDrine Sulfate/0.9% NaCl/Pf 25 MG/5 ML SYRINGE IV ONE (11:43)
[2019-07-16] MEDS ORDERED: fentaNYL 100 MCG/2 ML SDV IVPUSH PRN (12:34)
[2019-07-16] MEDS ORDERED: Haloperidol Lactate 5 MG/ML SDV IVPUSH ONE (12:35)
--- NOTE | 2019-07-16 12:37 | PCM.POSTAN ---
POST ANESTHESIA ASSESSMENT - MENTAL STATUS Mental Status: Alert, Oriented - VITAL SIGNS Vital Signs: Last Vital Signs Temp 36.0 C L 07/16/19 08:30 Pulse 64 07/16/19 10:30 Resp 16 07/16/19 11:00 BP 134/68 07/16/19 11:00 Pulse Ox 99 07/16/19 11:00 - RESPIRATORY Respiratory Status: Respiratory Rate WNL, Airway Patent, O2 Saturation Stable, Supplemental Oxygen - CARDIOVASCULAR CV Status: Pulse Rate WNL, Blood Pressure Stable - GASTROINTESTINAL GI Status: Nauseau (orders given) - PAIN Pain Score: 0 - POST OP HYDRATION Hydration Status: Adequate & Stable
--- NOTE | 2019-07-16 12:51 | PCM.SN.2 ---
- Free Text/Narrative Note: Date: 07/16/2019 Time Out:1038 Start: 1038 Stop: 1055 Surgical Procedure: Right shoulder video arthroscopy with biceps tenotomy Diagnosis Right Shoulder Pain Current Procedure: Right interscalene block under US guidance for postoperative pain control requested by Dr. Orellana. Patient chart reviewed, risk/benefits discussed with patient, consent obtained. Patient positioned supine, monitors/alarms on, oxygen placed via nasal cannula at 2 LPM. IV sedation administered: Versed 2mg IV, Fentanyl 100mcg IV given in preop prior to block placement. Right shoulder prepped with two chloropreps. Sterile drapes placed with aseptic technique noted. Under US guidance, right subclavian artery visualized along with the right brachial plexus. Plexus followed up to C6 cricoid level, and area localized with 2mls of 1% lidocaine. 22gauge 2 inch stimiplex needle advanced under US with 0.8mV with stimulation of biceps noted. Good stimulation noted with decreased voltage and absent at 0.3mVs. 1ml of Normal Saline injected with loss of stimulation noted to confirm needle not placed intraneurally. Incremental dosing of 5mls with negative aspiration noted prior to each injection of 0.5% ropivacaine with 1:200,000 epinephrine. Total volume=30mls. Please refer to nurses noted for vital signs. Aleks Good CRNA
--- NOTE | 2019-07-16 14:11 | PCM48HPAN ---
Post Anesthesia Note - EVALUATION WITHIN 48HRS OF ANESTHETIC Vital Signs in Normal Range: Yes Patient Participated in Evaluation: Yes Respiratory Function Stable: Yes Airway Patent: Yes Cardiovascular Function Stable: Yes Hydration Status Stable: Yes Pain Control Satisfactory: Yes Nausea and Vomiting Control Satisfactory: Yes Mental Status Recovered: Yes Vital Signs: Last Vital Signs Temp 36.8 C 07/16/19 13:25 Pulse 68 07/16/19 13:40 Resp 14 07/16/19 13:40 BP 119/58 L 07/16/19 13:40 Pulse Ox 92 L 07/16/19 13:40 - COMMENTS/OBSERVATIONS Free Text/Narrative:: no anesthesia complications noted
[2019-07-16 15:23] VITALS: BP 124/78; PULSE 76
--- NOTE | 2019-07-16 17:43 | PCM.OPNOTE ---
- General Post-Op/Procedure Note Date of Surgery/Procedure: 07/16/19 Operative Procedure(s): right shoulder video arthroscopy with subacromial decompression, extensive debridement and biceps tenotomy Pre Op Diagnosis: right shoulder rotator cuff tear with impingement Post-Op Diagnosis: same with biceps tendinopathy Anesthesia Technique: General ET Tube, Regional Block Primary Surgeon: Aureliano Orellana Anesthesia Provider: Aleks Good Applications Development Consultant: Ximena Diggs EBL in mLs: 5 Complications: None Condition: Good Free Text/Narrative:: Intake & Output 07/16/19 07/16/19 07/16/19 06:59 14:59 22:59 Intake Total 540 Balance 540
--- NOTE | 2019-07-19 09:50 | OR ---
DATE OF OPERATION: 07/16/2019 SURGEON: Aureliano Orellana MD OPERATION PERFORMED: Right shoulder video arthroscopy with subacromial decompression, extensive debridement and biceps tenotomy. PREOPERATIVE DIAGNOSIS: Right shoulder rotator cuff tear with impingement. POSTOPERATIVE DIAGNOSIS: Right shoulder rotator cuff tear with impingement with biceps tendinopathy. ANESTHESIA: General endotracheal intubation as well as regional interscalene block. ANESTHESIA PROVIDER: Aleks oGod CRNA. DIRECTOR APPAREL: Ximena Diggs PA-C. ESTIMATED BLOOD LOSS: 5 mL. COMPLICATIONS: None. CONDITION: Stable. DESCRIPTION OF PROCEDURE: The patient was identified in the preoperative holding area where the proper site was marked and identified by the surgeon. The patient was taken back to the operative theater where, after adequate anesthesia, the patient was placed in the lazy left lateral decubitus position. A wedge was placed posteriorly. The patient was secured to the table. Right upper extremity was then sterilely prepped and draped in the usual sterile fashion. OR time-out was performed. The patient received 2 g of IV Ancef. 12 pounds of traction was applied to the right upper extremity. Standard posterior incision was done and the scope trocar was introduced to the glenohumeral joint. With the use of a spinal needle, anterior portal was created from an outside-in technique. The patient was noted to have significant biceps fraying and tendinopathy. There was noted to be a high-grade partial-thickness tear of the supraspinatus. The patient only had grade 1 chondromalacia of the humeral head and grade 2 chondromalacia of the glenoid. The anterior labrum was frayed as well, but there was no gross tear. At this time, an extensive debridement was done of the biceps tendon attachment as well as the anterior labrum and then a biceps tenotomy was performed at this time. Any synovitis was also debrided at this time and then attention was turned to the subacromial space. The patient was noted to have high-grade partial-thickness tear of the supraspinatus attachment. At this time, I did do an extensive debridement of any bursitis as well as the tear site with there was still some tendon attached. The patient was noted to have a type 2 acromion, so at this time, an extensive debridement was done of the subacromial space and then a 4.0 full-radius raven was then used for an acromioplasty and subacromial decompression back to a smooth border with the posterior rim. Excess saline was drained from the shoulder at this time. 3-0 nylon suture was used for closure of the skin. The patient tolerated the procedure well, had a sterile soft dressing and a pillow sling applied, and sent to PACU in stable condition. CARLITOS /[id number]
== END 2019-07-16 14:30 | disposition home or self-care (01) ==
LOC: JD.SDS 08:44
PROVIDERS: ATTEND Orthopaedic Surgery
DX: M75.111 Incomplete rotator cuff tear or rupture of right shoulder, not specified as traumatic (principal); M94.211 Chondromalacia, right shoulder; M65.811 Other synovitis and tenosynovitis, right shoulder; E78.00 Pure hypercholesterolemia, unspecified; M25.811 Other specified joint disorders, right shoulder; I10 Essential (primary) hypertension; E03.9 Hypothyroidism, unspecified; F32.9 Major depressive disorder, single episode, unspecified; F41.9 Anxiety disorder, unspecified; K21.9 Gastro-esophageal reflux disease without esophagitis; K29.00 Acute gastritis without bleeding; M19.90 Unspecified osteoarthritis, unspecified site; Z91.041 Radiographic dye allergy status; Z87.19 Personal history of other diseases of the digestive system; Z79.890 Hormone replacement therapy; Z79.899 Other long term (current) drug therapy
CPT/HCPCS: 29823; 29826; 87635; 87641; A9270; J0171; J0690; J1100; J1630; J2001; J2250; J2370; J2405; J2704; J2795; J3010; J7120; 01630; 64415; U0002

== ENCOUNTER 2020-01-30 15:44 | Emergency (ER) | payer BC ==
[2020-01-30] MEDS ORDERED: HYDROmorphone 1 MG/ML Syringe IVPUSH ONE ×2 (15:54→16:52)
[2020-01-30] MEDS ORDERED: Ondansetron 4 MG/2 ML SDV IVPUSH ONE (15:55)
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
--- NOTE | 2020-01-30 16:32 | CR ---
Right humerus: 2 views of the right humerus were obtained. Findings: Osseous: Fracture is identified within the proximal humerus. There appears to be a lucent lesion in this area and difficult to exclude metastatic lesion. Fracture is slightly comminuted but remains close to anatomic in alignment. Impression: 1. Possible pathologic fracture within the proximal humerus. Recommend continued follow-up. Diagnostic code #3
[2020-01-30 17:20] VITALS: BP 111/68; PULSE 81
== END 2020-01-30 17:20 | disposition home or self-care (01) ==
LOC: JD.ED 15:44
DX: S42.201A Unspecified fracture of upper end of right humerus, initial encounter for closed fracture (principal); I10 Essential (primary) hypertension; K21.9 Gastro-esophageal reflux disease without esophagitis; F32.9 Major depressive disorder, single episode, unspecified; E03.9 Hypothyroidism, unspecified; Z91.048 Other nonmedicinal substance allergy status; Z79.899 Other long term (current) drug therapy; V53.5XXA Driver of pick-up truck or van injured in collision with car, pick-up truck or van in traffic accident, initial encounter
CPT/HCPCS: 73060; 96374; 96375; 96376; 99284; J1170; J2405; 73030-RT

== ENCOUNTER 2021-07-08 17:48 | Emergency (ER) | payer OTHER ==
[2021-07-08 18:18] VITALS: BP 172/97; PULSE 85
[2021-07-08] MEDS ORDERED: Sodium Chloride 0.9% 10 ML Syringe FLUSH PRN (18:27)
[2021-07-08] MEDS ORDERED: HYDROmorphone 0.5 MG/0.5 ML Syringe IVPUSH ONE ×3 (18:28→20:09)
[2021-07-08] MEDS ORDERED: Sodium Chloride 0.9% 1,000 ML IV SCH (18:30)
[2021-07-08] MEDS ORDERED: LORazepam 2 MG/ML SDV IVPUSH ONE (19:52)
[2021-07-08] MEDS ORDERED: Tamsulosin 0.4 MG Cap.ER PO ONE (20:19)
[2021-07-08] MEDS ORDERED: HYDROmorphone 1 MG/ML Syringe IVPUSH ONE (20:30)
== END 2021-07-08 21:45 | disposition home or self-care (01) ==
LOC: JD.ED 17:48
DX: R10.83 Colic (principal); N20.0 Calculus of kidney; K21.9 Gastro-esophageal reflux disease without esophagitis; E03.9 Hypothyroidism, unspecified; I10 Essential (primary) hypertension; Z90.49 Acquired absence of other specified parts of digestive tract; Z79.899 Other long term (current) drug therapy; Z91.041 Radiographic dye allergy status
CPT/HCPCS: 74176; 81003; 96374; 96375; 96376; 99284; A9270; J1170; J2060; J3490; J7030

== ENCOUNTER 2023-09-25 22:27 | Emergency (ER) | payer MEDICARE, OTHER ==
[2023-09-25] MEDS: Sodium Chloride 0.9% 10 ML Syringe FLUSH PRN (23:06)
[2023-09-25] MEDS: Sodium Chloride 0.9% 1,000 ML IV ONE (23:06)
[2023-09-25 23:13] LABS: BASOPHILS PERCENT AUTO 0.3 % (0.0-1.0); EOSINOPHILS PERCENT AUTO 0.1 % (0.0-6.0); HEMATOCRIT 40.6 % (42.0-52.0); HEMOGLOBIN 14.4 gm/dl (14.0-18.0); IMMATURE GRAN ABSOLUTE AUTO 0.03 K/mm3 (0.00-0.05); IMMATURE GRAN PERCENT AUTO 0.3 % (0.0-0.4); LYMPHOCYTES ABSOLUTE AUTO 1.3 K/mm3 (1.0-4.8); LYMPHOCYTES PERCENT AUTO 12.8 % (24.0-44.0); MEAN CORPUSCULAR HEMOGLOBIN 32.4 pg (28.0-32.0); MEAN CORPUSCULAR HGB CONC 35.5 g/dl (32.0-36.0); MEAN CORPUSCULAR VOLUME 91.4 fl (83.0-99.0); MEAN PLATELET VOLUME 9.2 fl (9.4-12.4); MONOCYTES ABSOLUTE AUTO 1.1 K/mm3 (0.0-0.8); MONOCYTES PERCENT AUTO 10.7 % (0.0-8.0); NEUTROPHILS ABSOLUTE AUTO 7.8 K/mm3 (1.8-7.7); NEUTROPHILS PERCENT AUTO 75.8 % (41.0-71.0); PLATELET COUNT,PLT 163 K/mm3 (150-400); RED BLOOD CELL COUNT 4.44 M/mm3 (4.52-5.90); WHITE BLOOD CELL COUNT,WBC 10.33 K/mm3 (3.9-11.3)
[2023-09-25] MEDS: Ketorolac 30 MG/ML SDV IVPUSH ONE (23:25)
[2023-09-25 23:30] LABS: INFLUENZA A NAA NEGATIVE (NEGATIVE); RESPIRATORY SYNCYTIAL VIR NAA NEGATIVE (NEGATIVE)
[2023-09-25 23:54] LABS: A/G RATIO 0.8 (1-2); ANION GAP 11.6 (5-15); BILIRUBIN TOTAL 0.6 mg/dL (0.2-1.0); BUN/CREATININE RATIO 12.7 (14-18); CALCIUM 9.5 mg/dL (8.5-10.1); CREATININE 1.1 mg/dL (0.7-1.3); EST CRCL DRUG DOSING (CG) 72.51 mL/min; MAGNESIUM 1.4 mg/dL (1.8-2.4); POTASSIUM,K 3.6 mEq/L (3.5-5.1); PROTEIN TOTAL,TP 6.9 g/dl (6.4-8.2)
[2023-09-25 23:56] LABS: T4 FREE 1.14 ng/dL (0.76-1.46); TSH 0.567 uIU/mL (0.358-3.74)
[2023-09-26 00:09] LABS: CORONAVIRUS COVID-19 NAA POSITIVE (NEGATIVE)
[2023-09-26] MEDS: Azithromycin 250 MG Tab PO ONE (00:45)
[2023-09-26 00:55] VITALS: BP 118/80; PULSE 81
== END 2023-09-26 00:52 | disposition home or self-care (01) ==
LOC: JD.ED 22:27
DX: U07.1 COVID-19 (principal); J98.4 Other disorders of lung; I10 Essential (primary) hypertension; I25.2 Old myocardial infarction; M19.90 Unspecified osteoarthritis, unspecified site; E78.00 Pure hypercholesterolemia, unspecified; E66.9 Obesity, unspecified; Z91.041 Radiographic dye allergy status; Z88.8 Allergy status to other drugs, medicaments and biological substances; Z79.82 Long term (current) use of aspirin; Z79.890 Hormone replacement therapy; Z79.899 Other long term (current) drug therapy; Z90.49 Acquired absence of other specified parts of digestive tract; Z86.16 Personal history of COVID-19; Z68.35 Body mass index [BMI] 35.0-35.9, adult
CPT/HCPCS: 0241U; 36415; 71046; 80053; 83735; 84439; 84443; 84484; 85025; 86140; 93005; 96361; 96374; 99285; A9270; J1885; J3490; J7030; 93010; 99284